=== PATIENT | male | born 1945 | race Caucasian/White ===

== ENCOUNTER 2017-07-10 09:11 | Inpatient (IN) | payer MEDICARE, BC, OTHER ==
[2017-07-10] VITALS (11 sets, daily range): BP systolic 149–197; BP diastolic 88–106; PULSE 78–106; RESP 18–20; TEMP 97.4–98.4; O2SAT 92–97
[~2017-07-10] VITALS: Ht 180.3 cm; Wt 103.5 kg
[~2017-07-10 09:11] MED LIST: ASPI81TA81; BUPR150T5 PO; CO Q100C9; CYAN1TAB24; DOCU50CA5; FISH1000; JANU50TA8 PO; LANTINJ SQ; LUTE6CAP2 PO; RAPA8CAP PO; TELM1TAB2 PO; VERA120T3 PO; VESI10TA PO; VITA200T10; VITA250T3 PO; [UNRECOGNIZED DRUG - CODE]
[2017-07-10] MEDS ORDERED: ceFAZolin 2 GM PREMIX 50 ML IV SCH (10:00)
[2017-07-10] MEDS: SODIUM CHLOR 0.45% 1000 ML IV SCH (10:00)
[2017-07-10] MEDS ORDERED: MORPHINE SULFATE 4 MG/ML INJ IV PRN ×4 (10:15→12:48)
[2017-07-10] MEDS ORDERED: BISACODYL 10 MG SUPP RECTAL PRN (10:15)
[2017-07-10] MEDS ORDERED: ACETAMINOPHEN 650 MG/20.3 ML UDC NG PRN (10:15)
[2017-07-10] MEDS ORDERED: ACETAMINOPHEN/HYDROcodone 325 MG/10 MG TAB PO PRN ×2 (10:15)
[2017-07-10] MEDS ORDERED: PANTOPRAZOLE SODIUM 40 MG VIAL IV PUSH PRN (10:15)
[2017-07-10] MEDS ORDERED: ONDANSETRON HCL 4 MG/2 ML VIAL IV PRN (10:15)
[2017-07-10] MEDS ORDERED: ACETAMINOPHEN 650 MG SUPP RECTAL PRN (10:15)
[2017-07-10] MEDS ORDERED: ACETAMINOPHEN 325 MG TAB PO PRN (10:15)
[2017-07-10] MEDS ORDERED: RESP: ALBUTEROL 2.5 MG/3 ML NEB (PRN) NEB (10:15)
[2017-07-10] MEDS ORDERED: SODIUM CHLORIDE FLUSH PRN IV FLUSH (10:30)
[2017-07-10 10:34] LABS: AUTOMATED NEUTROPHIL # 5.2 TH/MM3 (1.8-7.7); BASOPHIL # 0.1 TH/MM3 (0-0.2); BASOPHIL % 1.2 % (0.0-2.0); EOSINOPHIL # 0.3 TH/MM3 (0-0.4); EOSINOPHIL % 4.3 % (0.0-4.0); HEMATOCRIT 42.6 % (39.0-51.0); HEMO FLAGS DIFF FINAL; LYMPH % 13.9 % (9.0-44.0); MEAN CELL VOLUME 90.5 FL (80.0-100.0); MEAN CORPUSCULAR HEMOGLOBIN 30.4 PG (27.0-34.0); MEAN CORPUSCULAR HGB CONC 33.6 % (32.0-36.0); NEUT % 69.6 % (16.0-70.0); PLATELET COUNT 240 TH/MM3 (150-450); RED BLOOD COUNT 4.71 MIL/MM3 (4.50-5.90); RED CELL DISTRIBUTION WIDTH 17.7 % (11.6-17.2); WHITE BLOOD COUNT 7.5 TH/MM3 (4.0-11.0)
[2017-07-10 10:44] LABS: APTT (PATIENT) 27.8 SEC (24.3-30.1); INTERNATIONAL NORMALIZED RATIO 1.1 RATIO; PROTHROMBIN TIME - PATIENT 11.8 SEC (9.8-11.6)
[2017-07-10 10:49] LABS: BICARBONATE 28.1 MEQ/L (21.0-32.0); POTASSIUM 3.8 MEQ/L (3.5-5.1)
[2017-07-10] MEDS ORDERED: MIDAZOLAM HCL 2 MG/2 ML VIAL ONE (11:01)
[2017-07-10] MEDS ORDERED: DEXTROSE 50% IN WATER 50 ML VIAL(D50) IV PRN ×2 (13:00→14:15)
[2017-07-10] MEDS ORDERED: GLUCAGON 1 MG/ML VIAL OTHER PRN ×2 (13:00→14:15)
--- NOTE | 2017-07-10 13:04 | HHI.HP ---
(Deepika Okeefe) [facility] Service Neurosurgery Primary Care Physician Unknown Chief Complaint: NPH, presents today for lumbar drain placement History of Present Illness Mr. Andrade is a 72 year old male who was previously seen in consultation at the request of Dr. Henri Mosley for neurosurgical evaluation of Normal Pressure Hydrocephalus. Mr. Andrade reports he began to develop progressive gait difficulties since 2009. His who accompanies him today describes his gait as broad based, shuffling, and his feet gets stuck to the floor. He has had recurrent falls. He has now in a motorized scooter for mobility. He underwent Physical Therapy without significant relief. Mr. Andrade also complains of loss of urine control. His reports no difficulties with his memory or thinking. He underwent an MRI of the Brain which showed ventriculomegaly suspicious for communicating hydrocephalus. He presents today for placement of lumbar drain. Dr. Henri Mosley also plans CSF testing for CIDP. (Deepika Okeefe) Review of Systems Constitutional: DENIES: Fever, Chills Eyes: DENIES: Diplopia, Vision loss Ears, nose, mouth, throat: DENIES: Vertigo Respiratory: DENIES: Hemoptysis, Shortness of breath Cardiovascular: DENIES: Chest pain Gastrointestinal: DENIES: Abdominal pain, Nausea, Vomiting Genitourinary: COMPLAINS OF: Urinary incontinence Neurologic: COMPLAINS OF: Abnormal gait, Poor Balance, DENIES: Headache Psychiatric: DENIES: Hallucinations (Deepika Okeefe) Past Family Social History Allergies: Coded Allergies: No Known Allergies (Unverified , 06/18/17) Past Medical History Diabetes mellitus Hx of Chickenpox Peripheral neuropathy Anxiety Depression Past Surgical History 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 Reported Medications Cyanocobalamin (B12)1,000 Mcg Tab3,000 Docusate Sodium (Stool Softener)50 Mg Capsule Coenzyme Q10 (Ubidecarenone) (Co Q 10)100 Mg Cap Ascorbic Acid (Vitamin C)250 Mg [id number] Mg PO Ref [address] (Aspir)81 Mg Tabdr Vitamin E Mixed (Vitamin E)200 Unit Tablet Cholecalciferol (Vitamin D3) (D3-1999)2,000 Unit Capsule [place]-3 Fatty Acids (Fish Oil)1,000 Mg Cap1,200 Lutein 6 Mg Cap6 Mg PO DAILY Ref 0 Bupropion HCl ER 12 HR 150 Mg [id number] Mg PO BID #60 TAB Solifenacin (Vesicare)10 Mg Tab10 Mg PO DAILY #30 TAB Ref 0 Silodosin (Rapaflo)8 Mg Cap8 Mg PO DAILY #30 CAP Ref 0 Sitagliptin-Metformin (Janumet)50-1,000 Mg Tab1 Tab PO BID #60 TAB Ref 0 Insulin Glargine Inj (Lantus Solostar Pen Inj)300 Unit/3 Ml Pen1 Units SQ Ref 0 Telmisartan 80 Mg Tab80 Mg PO DAILY #30 TAB Ref 0 Verapamil 120 Mg [id number] Mg PO DAILY #60 TAB Ref 0 Active Ordered Medications Current Medications Medications (Trade) Dose Ordered Sig/Matias Route PRN Reason Start Time Stop Time Status Last Admin Dose Admin Sodium Chloride 1,000 ml @ 30 mls/hr Q24H IV 07/10/17 10:00 Cefazolin Sodium/ Dextrose 50 ml @ 100 mls/hr SERVICE TECHNICIAN COPIER IV 07/10/17 10:00 07/13/17 09:59 Potassium Chloride/Sodium Chloride 1,000 ml @ 30 mls/hr Q24H IV 07/10/17 11:00 Bisacodyl (Dulcolax Supp) 10 mg DAILY PRN RECTAL CONSTIPATION 07/10/17 10:15 Docusate Sodium (Colace) 100 mg BID PO 07/10/17 21:00 Docusate Sodium (Colace Liq) 100 mg BID NG 07/10/17 21:00 Pantoprazole Sodium (Protonix) 40 mg DAILY PO 07/10/17 11:00 Pantoprazole Sodium (Protonix Inj) 40 mg DAILY PRN IV PUSH SEE LABEL COMMENTS 07/10/17 10:15 Ondansetron HCl (Zofran Inj) 4 mg Q8H PRN IV NAUSEA OR VOMITING 07/10/17 10:15 Acetaminophen/ Hydrocodone Bitart ([place] 10-325 Mg) 1 tab Q4H PRN PO PAIN SCALE 1 TO 5 07/10/17 10:15 Acetaminophen/ Hydrocodone Bitart ([place] 10-325 Mg) 2 tab Q4H PRN PO PAIN SCALE 6 TO 10 07/10/17 10:15 Morphine Sulfate (Morphine Inj) 2 mg Q30M PRN IV PAIN SCALE 1 TO 6 07/10/17 10:15 Morphine Sulfate (Morphine Inj) 4 mg Q1H PRN IV PAIN SCALE 7 TO 10 07/10/17 10:15 Acetaminophen (Tylenol) 650 mg Q4H PRN PO TEMPERATURE > 101.5 F 07/10/17 10:15 Acetaminophen (Tylenol 650 Mg/ 20 ml Liq) 650 mg Q4H PRN NG TEMPERATURE > 101.5 F 07/10/17 10:15 Acetaminophen (Tylenol Supp) 650 mg Q4H PRN RECTAL TEMPERATURE > 101.5 F 07/10/17 10:15 Albuterol Sulfate (Albuterol Neb) 2.5 mg Q4HR NEB PRN NEB WHEEZING 07/10/17 10:15 Sodium Chloride (NS Flush) 2 ml BID IV FLUSH 07/10/17 21:00 Sodium Chloride (NS Flush) 2 ml UNSCH PRN IV FLUSH FLUSH AFTER USING IV ACCESS 07/10/17 10:30 Bupropion HCl (Wellbutrin Sr) 150 mg BID PO 07/10/17 21:00 UNV Verapamil HCl (Isoptin) 240 mg DAILY PO 07/11/17 09:00 UNV Non-Formulary Medication 6 mg DAILY PO 07/11/17 09:00 UNV Non-Formulary Medication 8 mg DAILY PO 07/11/17 09:00 UNV Non-Formulary Medication 1 tab BID PO 07/10/17 21:00 UNV Non-Formulary Medication 10 mg DAILY PO 07/11/17 09:00 UNV Non-Formulary Medication 80 mg DAILY PO 07/11/17 09:00 UNV Dextrose (D50w (Vial) Inj) 50 ml UNSCH PRN IV HYPOGLYCEMIA-SEE COMMENTS 07/10/17 13:00 UNV Glucagon (Glucagon Inj) 1 mg UNSCH PRN OTHER HYPOGLYCEMIA-SEE COMMENTS 07/10/17 13:00 UNV Insulin Aspart (NovoLOG SUPPLEMENTAL SCALE) 1 ACHS SLIDING SCALE SQ 07/10/17 16:00 UNV Family History Reports of dementia and heart disease in family Social History Alcohol Intake: None Substance Use: Denies used Tobacco Use: never smoker (Deepika Okeefe) Physical Exam Vital Signs Vital Signs Date Time Temp Pulse Resp B/P (MAP) Pulse Ox O2 Delivery O2 Flow Rate FiO2 07/10/17 12:15 97.9 83 20 162/92 (115) 93 07/10/17 09:52 Room Air 07/10/17 09:34 97.9 98 18 190/106 (134) 95 Physical Exam Mr. Andrade is alert, awake and oriented to time, place and person. Speech is fluent. Follows commands without apraxia. Memory: Immediate recall 3/3. 1/3 after 5 minutes. Cranial nerve: pupils equal, round, and reactive to light. EOMs are intact. Facial motor and sensory function are normal and symmetrical. The uvula is midline and elevates symmetrically with the soft palate. Sternocleidomastoid and trapezius muscles have normal and symmetrical strength. Other cranial nerves are intact. Neck is soft and supple. Muscle strength is 5/5 in all muscle groups of both upper extremities including deltoid, biceps, triceps and experimental technician. In the lower extremities, strength is 4/5 right iliopsoas, 5/5 left iliopsoas, bilateral quadriceps, hamstrings, plantar flexion, dorsiflexion. Sensory examination is intact to light touch in both the upper and lower extremities, symmetrically. Deep tendon reflexes are 2+ and symmetrical in the biceps, triceps, and brachioradialis, bilaterally, in the upper extremities. In the lower extremities , the patellar and Achilles are 2+, bilaterally. There is a bilateral plantar flexion response. Zeferino's sign is negative. There is no clonus or other abnormal reflexes noted. Cerebellar examination is intact to [id number] test Gait examination in office: patient presented in a scooter chair. Attempted to ambulate patient with two man maximum assist, patient was unable to stand up off the chair. Per , patient walking appears broad based, shuffling, and feet gets stuck to floor. CARDIOVASCULAR: Regular rate and rhythm without murmurs, gallops, or rubs. RESPIRATORY: Clear to auscultation. Breath sounds equal bilaterally. No wheezes , rales, or rhonchi. GASTROINTESTINAL: Abdomen soft, non-tender, nondistended. MUSCULOSKELETAL: Extremities without clubbing, cyanosis, or edema. No calf tenderness. Negative Homans sign Laboratory Laboratory Tests Test 07/10/17 08:30 White Blood Count 7.5 Red Blood Count 4.71 Hemoglobin 14.3 Hematocrit 42.6 Mean Corpuscular Volume 90.5 Mean Corpuscular Hemoglobin 30.4 Mean Corpuscular Hemoglobin Concent 33.6 Red Cell Distribution Width 17.7 Platelet Count 240 Mean Platelet Volume 8.2 Neutrophils (%) (Auto) 69.6 Lymphocytes (%) (Auto) 13.9 Monocytes (%) (Auto) 11.0 Eosinophils (%) (Auto) 4.3 Basophils (%) (Auto) 1.2 Neutrophils # (Auto) 5.2 Lymphocytes # (Auto) 1.0 Monocytes # (Auto) 0.8 Eosinophils # (Auto) 0.3 Basophils # (Auto) 0.1 CBC Comment DIFF FINAL Differential Comment Prothrombin Time 11.8 Prothromb Time International Ratio 1.1 Activated Partial Thromboplast Time 27.8 Blood Urea Nitrogen 15 Creatinine 0.92 Random Glucose 106 Calcium Level 8.6 Sodium Level 143 Potassium Level 3.8 Chloride Level 108 Carbon Dioxide Level 28.1 Anion Gap 7 Estimat Glomerular Filtration Rate 80 (Deepika Okeefe) Physical Exam Mr. Andrade is alert, awake and oriented to time, place and person. Speech is fluent. Follows commands without apraxia. Memory: Immediate recall 3/3. 1/3 after 5 minutes. Cranial nerve: pupils equal, round, and reactive to light. EOMs are intact. Facial motor and sensory function are normal and symmetrical. The uvula is midline and elevates symmetrically with the soft palate. Sternocleidomastoid and trapezius muscles have normal and symmetrical strength. Other cranial nerves are intact. Neck is soft and supple. Muscle strength is 5/5 in all muscle groups of both upper extremities including deltoid, biceps, triceps and experimental technician. In the lower extremities, strength is 4/5 right iliopsoas, 5/5 left iliopsoas, bilateral quadriceps, hamstrings, plantar flexion, dorsiflexion. Sensory examination is intact to light touch in both the upper and lower extremities, symmetrically. Deep tendon reflexes are 2+ and symmetrical in the biceps, triceps, and brachioradialis, bilaterally, in the upper extremities. In the lower extremities , the patellar and Achilles are 2+, bilaterally. There is a bilateral plantar flexion response. Zeferino's sign is negative. There is no clonus or other abnormal reflexes noted. Cerebellar examination is intact to [id number] test (Edgar Urbina MD) Result Diagram: 07/10/17 0830 07/10/17 0830 Imaging MRI brain 05/31/17 [facility] Dilation of the ventricles. 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 Mild cortical involution and microvascular gliosis. (Deepika Okeefe) Caprini VTE Risk Assessment Caprini VTE Risk Assessment: Mod/High Risk (score >= 2) VTE Pharm Contraindication: Epidural catheter Caprini Risk Assessment Model Point Value = 1 Point Value = 2 Point Value = 3 Point Value = 5 Age 41-60 Minor surgery BMI > 25 kg/m2 Swollen legs Varicose veins or History of unexplained or recurrent spontaneous Oral contraceptives or hormone replacement Sepsis (< 1 month) Serious lung disease, including pneumonia (< 1 month) Abnormal pulmonary function Acute myocardial infarction Congestive heart failure (< 1 month) History of inflammatory bowel disease Medical patient at bed rest Age 61-74 Arthroscopic surgery Major open surgery (> 45 min) Laparoscopic surgery (> 45 min) Malignancy Confined to bed (> 72 hours) Immobilizing plaster cast Central venous access Age >= 75 History of VTE Family history of VTE Factor V Leiden Prothrombin [id number] Lupus anticoagulant Anticardiolipin antibodies Elevated serum homocysteine Heparin-induced thrombocytopenia Other congenital or acquired thrombophilia Stroke (< 1 month) Elective arthroplasty Hip, pelvis, or leg fracture Acute spinal cord injury (< 1 month) Prophylaxis Regimen Total Risk Factor Score Risk Level Prophylaxis Regimen 0-1 Low Early ambulation 2 Moderate Order ONE of the following: *Sequential Compression Device (SCD) *Heparin 5000 units SQ BID 3-4 Higher Order ONE of the following medications: *Heparin 5000 units SQ TID *Enoxaparin/Lovenox 40 mg SQ daily (WT < 150 kg, CrCl > 30 mL/min) *Enoxaparin/Lovenox 30 mg SQ daily (WT < 150 kg, CrCl > 10-29 mL/min) *Enoxaparin/Lovenox 30 mg SQ BID (WT < 150 kg, CrCl > 30 mL/min) AND/OR *Sequential Compression Device (SCD) 5 or more Highest Order ONE of the following medications: *Heparin 5000 units SQ TID (Preferred with Epidurals) *Enoxaparin/Lovenox 40 mg SQ daily (WT < 150 kg, CrCl > 30 mL/min) *Enoxaparin/Lovenox 30 mg SQ daily (WT < 150 kg, CrCl > 10-29 mL/min) *Enoxaparin/Lovenox 30 mg SQ BID (WT < 150 kg, CrCl > 30 mL/min) AND *Sequential Compression Device (SCD) (Deepika Okeefe) Assessment and Plan Assessment and Plan Mr. Andrade with suspected Normal Pressure Hydrocephalus. He underwent placement of lumbar drain for CSF drainage per protocol. Physical Therapy evaluation pre and post lumbar drain placement. If the patients gait improves after CSF drainage, he may be a candidate for placement of a permanent ventriculoperitoneal shunt. Consultation to Dr. Henri Mosley, Neurologist, as patient known to him for work up for possible CIDP. Consultation to hospitalist in assistance with medical management SCDs and TEDs for DVT prophylaxis. Chemical prophylaxis contraindicated due to lumbar drain. Protonix for stress ulcer prophylaxis. Diabetes: glucose monitoring with insulin SS, defer further management per medicine Diet: regular oral diet (Deepika Okeefe) Assessment and Plan Gait examination in office: patient presented in a scooter chair. Attempted to ambulate patient with two man maximum assist, patient was unable to stand up off the chair. Per , patient walking appears broad based, shuffling, and feet gets stuck to floor. CARDIOVASCULAR: Regular rate and rhythm without murmurs, gallops, or rubs. RESPIRATORY: Clear to auscultation. Breath sounds equal bilaterally. No wheezes , rales, or rhonchi. GASTROINTESTINAL: Abdomen soft, non-tender, nondistended. MUSCULOSKELETAL: Extremities without clubbing, cyanosis, or edema. No calf tenderness. Negative Homans sign Laboratory Laboratory Tests Test 07/10/17 08:30 White Blood Count 7.5 Red Blood Count 4.71 Hemoglobin 14.3 Hematocrit 42.6 Mean Corpuscular Volume 90.5 Mean Corpuscular Hemoglobin 30.4 Mean Corpuscular Hemoglobin Concent 33.6 Red Cell Distribution Width 17.7 Platelet Count 240 Mean Platelet Volume 8.2 Neutrophils (%) (Auto) 69.6 Lymphocytes (%) (Auto) 13.9 Monocytes (%) (Auto) 11.0 Eosinophils (%) (Auto) 4.3 Basophils (%) (Auto) 1.2 Neutrophils # (Auto) 5.2 Lymphocytes # (Auto) 1.0 Monocytes # (Auto) 0.8 Eosinophils # (Auto) 0.3 Basophils # (Auto) 0.1 CBC Comment DIFF FINAL Differential Comment Prothrombin Time 11.8 Prothromb Time International Ratio 1.1 Activated Partial Thromboplast Time 27.8 Blood Urea Nitrogen 15 Creatinine 0.92 Random Glucose 106 Calcium Level 8.6 Sodium Level 143 Potassium Level 3.8 Chloride Level 108 Carbon Dioxide Level 28.1 Anion Gap 7 Estimat Glomerular Filtration Rate 80 (Deepika Okeefe) Result Diagram: 07/10/17 0830 07/10/17 0830 Imaging MRI brain 05/31/17 [facility] Dilation of the ventricles. 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 Mild cortical involution and microvascular gliosis. (Deepika Okeefe) Caprini VTE Risk Assessment Caprini VTE Risk Assessment: Mod/High Risk (score >= 2) VTE Pharm Contraindication: Epidural catheter Caprini Risk Assessment Model Point Value = 1 Point Value = 2 Point Value = 3 Point Value = 5 Age 41-60 Minor surgery BMI > 25 kg/m2 Swollen legs Varicose veins or History of unexplained or recurrent spontaneous Oral contraceptives or hormone replacement Sepsis (< 1 month) Serious lung disease, including pneumonia (< 1 month) Abnormal pulmonary function Acute myocardial infarction Congestive heart failure (< 1 month) History of inflammatory bowel disease Medical patient at bed rest Age 61-74 Arthroscopic surgery Major open surgery (> 45 min) Laparoscopic surgery (> 45 min) Malignancy Confined to bed (> 72 hours) Immobilizing plaster cast Central venous access Age >= 75 History of VTE Family history of VTE Factor V Leiden Prothrombin [id number] Lupus anticoagulant Anticardiolipin antibodies Elevated serum homocysteine Heparin-induced thrombocytopenia Other congenital or acquired thrombophilia Stroke (< 1 month) Elective arthroplasty Hip, pelvis, or leg fracture Acute spinal cord injury (< 1 month) Prophylaxis Regimen Total Risk Factor Score Risk Level Prophylaxis Regimen 0-1 Low Early ambulation 2 Moderate Order ONE of the following: *Sequential Compression Device (SCD) *Heparin 5000 units SQ BID 3-4 Higher Order ONE of the following medications: *Heparin 5000 units SQ TID *Enoxaparin/Lovenox 40 mg SQ daily (WT < 150 kg, CrCl > 30 mL/min) *Enoxaparin/Lovenox 30 mg SQ daily (WT < 150 kg, CrCl > 10-29 mL/min) *Enoxaparin/Lovenox 30 mg SQ BID (WT < 150 kg, CrCl > 30 mL/min) AND/OR *Sequential Compression Device (SCD) 5 or more Highest Order ONE of the following medications: *Heparin 5000 units SQ TID (Preferred with Epidurals) *Enoxaparin/Lovenox 40 mg SQ daily (WT < 150 kg, CrCl > 30 mL/min) *Enoxaparin/Lovenox 30 mg SQ daily (WT < 150 kg, CrCl > 10-29 mL/min) *Enoxaparin/Lovenox 30 mg SQ BID (WT < 150 kg, CrCl > 30 mL/min) AND *Sequential Compression Device (SCD) (Deepika Okeefe) Suspected Normal Pressure Hydrocephalus. He underwent placement of lumbar drain for CSF drainage per protocol. Physical Therapy evaluation pre and post lumbar drain placement. If the patients gait improves after CSF drainage, he may be a candidate for placement of a permanent ventriculoperitoneal shunt. Consultation to Dr. Henri Mosley, for work up for possible CIDP. Pulmonary.. Continue aggressive pulmonary toilette, nasotracheal suction, and breathing treatments with nebulizers. Nutrition. NPO Renal. monitor closely urine output, BUN and creatinine Endocrine. Monitor serial Acu checks and SSI as needed in detail ID monitor for signs of infection Protonix for stress ulcer prophylaxis Cristóbal hose and SCD's for DVT prophylaxis (Edgar Urbina MD) Attending Statement The exam, history, and the medical decision-making described in the above note were completed with the assistance of the mid-level provider. I reviewed and agree with the findings presented. I attest that I had a [id number] encounter with the patient on the same day, and personally performed and documented my assessment and findings in the medical record. (Edgar Urbina MD) Deepika Okeefe Jul 10, 2017 13:03 Edgar Urbina MD Jul 22, 2017 21:59
--- NOTE | 2017-07-10 14:31 | PD.CONS ---
[facility] Request[facility] By DR DESIREE TINSLEY Reason for Consult MEDICAL MANAGEMENT Primary Care Physician MURRAY POMPA Diagnoses: (1) Gait instability (2) Diabetes (3) Hypertension (4) Depression (5) Anxiety History of Present Illness Mr. Andrade is a 72 year old male who was previously seen in consultation BY DR TINSLEY at the request of Dr. Henri Mosley for neurosurgical evaluation of Normal Pressure Hydrocephalus. Mr. Andrade reports he began to develop progressive gait difficulties since 2009. His who accompanies him today describes his gait as broad based, shuffling, and his feet gets stuck to the floor. He has had recurrent falls. He NOW USES a motorized scooter for mobility. He underwent Physical Therapy without significant relief. Mr. Andrade also complains of loss of urine control. His reports no difficulties with his memory or thinking. He underwent an MRI of the Brain which showed ventriculomegaly suspicious for communicating hydrocephalus. He presents today for placement of lumbar drain. Dr. Henri Mosley also plans CSF testing for CIDP. WE HAVE BEEN ASKED TO SEE REGARDING MEDICAL MANAGEMENT. Review of Systems Constitutional: COMPLAINS OF: Fatigue, Dizziness, DENIES: Diaphoretic episodes , Fever, Weight gain, Weight loss, Chills, Change in appetite, Night Sweats Endocrine: DENIES: Heat/cold intolerance, Polydipsia, Polyuria, Polyphagia Eyes: DENIES: Blurred vision, Diplopia, Eye inflammation, Eye pain, Vision loss , Photosensitivity Ears, nose, mouth, throat: DENIES: Tinnitus, Hearing loss, Vertigo, Nasal discharge, Oral lesions, Throat pain, Hoarseness Respiratory: DENIES: Apneas, Cough, Snoring, Wheezing, Hemoptysis, Sputum production Cardiovascular: DENIES: Chest pain, Palpitations, Syncope, Dyspnea on Exertion , PND, Lower Extremity Edema Gastrointestinal: DENIES: Abdominal pain, Black stools, Bloody stools, Constipation, Diarrhea Genitourinary: DENIES: Sexual dysfunction, Urinary frequency, Urinary incontinence Musculoskeletal: DENIES: Joint pain, Muscle aches, Stiffness Integumentary: DENIES: Abnormal pigmentation, Nail changes Hematologic/lymphatic: DENIES: Bruising, Lymphadenopathy Immunologic/allergic: DENIES: Eczema, Urticaria Neurologic: COMPLAINS OF: Abnormal gait, Localized weakness, Poor Balance, DENIES: Headache, Paresthesias, Seizures, Speech Problems, Tremor Psychiatric: COMPLAINS OF: Anxiety, Depression, DENIES: Confusion, Mood changes , Hallucinations, Agitation, Suicidal Ideation, Homicidal Ideation Past Family Social History Allergies: Coded Allergies: No Known Allergies (Unverified , 06/18/17) Past Medical History HYPERTENSION DIABETES ANXIETY DEPRESSION GAIT INSTABILITY HX OF FALLS PERIPHERAL NEUROPATHY Past Surgical History 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 Reported Medications Reported Meds & Active Scripts Active Reported B12 (Cyanocobalamin) 1,000 Mcg Tab 3,000 Stool Softener (Docusate Sodium) 50 Mg Capsule Co Q 10 (Coenzyme Q10 (Ubidecarenone)) 100 Mg Cap Vitamin C (Ascorbic Acid) 250 Mg Tab 500 Mg PO Aspir-81 (Aspirin) 81 Mg Tabdr Vitamin E (Vitamin E Mixed) 200 Unit Tablet D3-2000 (Cholecalciferol (Vitamin D3)) 2,000 Unit Capsule Fish Oil (Ravena-3 Fatty Acids) 1,000 Mg Cap 1,200 Lutein 6 Mg Cap 6 Mg PO DAILY Bupropion HCl ER 12 HR (Bupropion HCl) 150 Mg Tab 150 Mg PO BID Vesicare (Solifenacin) 10 Mg Tab 10 Mg PO DAILY Rapaflo (Silodosin) 8 Mg Cap 8 Mg PO DAILY Janumet (Sitagliptin-Metformin) 50-1,000 Mg Tab 1 Tab PO BID Lantus Solostar Pen Inj (Insulin Glargine) 300 Unit/3 Ml Pen 1 Units SQ Telmisartan 80 Mg Tab 80 Mg PO DAILY Verapamil (Verapamil HCl) 120 Mg Tab 240 Mg PO DAILY Active Ordered Medications Current Medications Sodium Chloride 1,000 ml @ 30 mls/hr Q24H IV ; Start 07/10/17 at 10:00 Cefazolin Sodium/ Dextrose 50 ml @ 100 mls/hr CORPORATE ADMINISTRATIVE ASSISTANT IV ; Start 07/10/17 at 10 :00; Stop 07/13/17 at 09:59 Potassium Chloride/Sodium Chloride 1,000 ml @ 30 mls/hr Q24H IV ; Start at 11:00 Bisacodyl (Dulcolax Supp) 10 mg DAILY PRN RECTAL CONSTIPATION; Start 07/10/17 at 10:15 Docusate Sodium (Colace) 100 mg BID PO ; Start 07/10/17 at 21:00 Docusate Sodium (Colace Liq) 100 mg BID NG ; Start 07/10/17 at 21:00 Pantoprazole Sodium (Protonix) 40 mg DAILY PO ; Start 07/10/17 at 11:00 Pantoprazole Sodium (Protonix Inj) 40 mg DAILY PRN IV PUSH SEE LABEL COMMENTS; Start 07/10/17 at 10:15 Ondansetron HCl (Zofran Inj) 4 mg Q8H PRN IV NAUSEA OR VOMITING; Start 07/10/17 at 10:15 Acetaminophen/ Hydrocodone Bitart ([place]ison 10-325 Mg) 1 tab Q4H PRN PO PAIN SCALE 1 TO 5; Start 07/10/17 at 10:15 Acetaminophen/ Hydrocodone Bitart (Burlison 10-325 Mg) 2 tab Q4H PRN PO PAIN SCALE 6 TO 10; Start 07/10/17 at 10:15 Morphine Sulfate (Morphine Inj) 2 mg Q30M PRN IV PAIN SCALE 1 TO 6; Start at 10:15; Stop 07/10/17 at 12:52; Status DC Morphine Sulfate (Morphine Inj) 4 mg Q1H PRN IV PAIN SCALE 7 TO 10; Start at 10:15; Stop 07/10/17 at 12:52; Status DC Acetaminophen (Tylenol) 650 mg Q4H PRN PO TEMPERATURE > 101.5 F; Start 07/10/17 at 10:15 Acetaminophen (Tylenol 650 Mg/ 20 ml Liq) 650 mg Q4H PRN NG TEMPERATURE > 101.5 F; Start 07/10/17 at 10:15 Acetaminophen (Tylenol Supp) 650 mg Q4H PRN RECTAL TEMPERATURE > 101.5 F; Start 07/10/17 at 10:15 Albuterol Sulfate (Albuterol Neb) 2.5 mg Q4HR NEB PRN NEB WHEEZING; Start at 10:15 Sodium Chloride (NS Flush) 2 ml BID IV FLUSH ; Start 07/10/17 at 21:00 Sodium Chloride (NS Flush) 2 ml UNSCH PRN IV FLUSH FLUSH AFTER USING IV ACCESS ; Start 07/10/17 at 10:30 Fentanyl Citrate (fentaNYL INJ) 100 mcg STK-MED ONCE .ROUTE Last administered on 07/10/17t 11:01; Start 07/10/17 at 11:01; Stop 07/10/17 at 11:02; Status DC Midazolam HCl (Versed Inj) 2 mg STK-MED ONCE .ROUTE Last administered on t 11:01; Start 07/10/17 at 11:01; Stop 07/10/17 at 11:02; Status DC Bupropion HCl (Wellbutrin Sr) 150 mg BID PO ; Start 07/10/17 at 21:00; Status UNV Verapamil HCl (Isoptin) 240 mg DAILY PO ; Start 07/11/17 at 09:00; Status UNV Non-Formulary Medication 6 mg DAILY PO ; Start 07/11/17 at 09:00; Status UNV Non-Formulary Medication 8 mg DAILY PO ; Start 07/11/17 at 09:00; Status UNV Non-Formulary Medication 1 tab BID PO ; Start 07/10/17 at 21:00; Status UNV Non-Formulary Medication 10 mg DAILY PO ; Start 07/11/17 at 09:00; Status UNV Non-Formulary Medication 80 mg DAILY PO ; Start 07/11/17 at 09:00; Status UNV Dextrose (D50w (Vial) Inj) 50 ml UNSCH PRN IV HYPOGLYCEMIA-SEE COMMENTS; Start 07/10/17 at 13:00; Status UNV Glucagon (Glucagon Inj) 1 mg UNSCH PRN OTHER HYPOGLYCEMIA-SEE COMMENTS; Start 07/10/17 at 13:00; Status UNV Insulin Aspart (NovoLOG SUPPLEMENTAL SCALE) 1 ACHS SLIDING SCALE SQ ; Start 07/10/17 at 16:00; Status UNV Morphine Sulfate (Morphine Inj) 2 mg Q2HR PRN IV PAIN SCALE 1 TO 6; Start at 12:48; Status UNV Morphine Sulfate (Morphine Inj) 4 mg Q2HR PRN IV PAIN SCALE 7 TO 10; Start 07/10 at 12:48; Stop 07/15/17 at 12:47; Status UNV Dextrose (D50w (Vial) Inj) 50 ml UNSCH PRN IV HYPOGLYCEMIA-SEE COMMENTS; Start 07/10/17 at 14:15; Status UNV Glucagon (Glucagon Inj) 1 mg UNSCH PRN OTHER HYPOGLYCEMIA-SEE COMMENTS; Start 07/10/17 at 14:15; Status UNV Insulin Aspart (NovoLOG SUPPLEMENTAL SCALE) 1 ACHS SLIDING SCALE SQ ; Start 07/10/17 at 16:00; Status UNV Family History HEART DISEASE DEMENTIA Social History NO ALCOHOL, NO TOBACCO, NO ILLICIT DRUGS LIVES WITH USES SCOOTER FOR AMBULATION Physical Exam Vital Signs Vital Signs Date Time Temp Pulse Resp B/P (MAP) Pulse Ox O2 Delivery O2 Flow Rate FiO2 07/10/17 13:45 78 18 158/99 (118) 92 07/10/17 13:15 85 18 149/88 (108) 93 07/10/17 12:45 78 20 158/89 (112) 95 07/10/17 12:30 82 20 158/91 (113) 94 07/10/17 12:15 97.9 83 20 162/92 (115) 93 07/10/17 09:52 Room Air 07/10/17 09:34 97.9 98 18 190/106 (134) 95 Physical Exam GENERAL: This is a well-nourished, well-developed patient, in no apparent distress. SKIN: No rashes, ecchymoses or lesions. Cool and dry. HEAD: Atraumatic. Normocephalic. No temporal or scalp tenderness. EYES: Pupils equal round and reactive. Extraocular motions intact. No scleral icterus. No injection or drainage. ENT: Nose without bleeding, purulent drainage or septal hematoma. Throat without erythema, tonsillar hypertrophy or exudate. Uvula midline. Airway patent. NECK: Trachea midline. No JVD or lymphadenopathy. Supple, nontender, no meningeal signs. CARDIOVASCULAR: Regular rate and rhythm without murmurs, gallops, or rubs. S1, S2 NO S3 OR S4 NO HEAVE OR THRILL RESPIRATORY: Clear to auscultation. Breath sounds equal bilaterally. No wheezes , rales, or rhonchi. GASTROINTESTINAL: Abdomen soft, non-tender, nondistended. No hepato-splenomegaly , or palpable masses. No guarding. MUSCULOSKELETAL: Extremities without clubbing, cyanosis, or edema. No joint tenderness, effusion, or edema noted. No calf tenderness. Negative Homans sign bilaterally. NEUROLOGICAL: Awake and alert. Cranial nerves II through XII intact. Motor and sensory grossly within normal limits. 4 out of 5 muscle strength in all muscle groups. Normal speech. INSIGHT AND JUDGEMENT ARE GOOD MOOD AND BEHAVIOR ARE APPROPRIATE Laboratory Laboratory Tests Test 07/10/17 08:30 White Blood Count 7.5 Red Blood Count 4.71 Hemoglobin 14.3 Hematocrit 42.6 Mean Corpuscular Volume 90.5 Mean Corpuscular Hemoglobin 30.4 Mean Corpuscular Hemoglobin Concent 33.6 Red Cell Distribution Width 17.7 Platelet Count 240 Mean Platelet Volume 8.2 Neutrophils (%) (Auto) 69.6 Lymphocytes (%) (Auto) 13.9 Monocytes (%) (Auto) 11.0 Eosinophils (%) (Auto) 4.3 Basophils (%) (Auto) 1.2 Neutrophils # (Auto) 5.2 Lymphocytes # (Auto) 1.0 Monocytes # (Auto) 0.8 Eosinophils # (Auto) 0.3 Basophils # (Auto) 0.1 CBC Comment DIFF FINAL Differential Comment Prothrombin Time 11.8 Prothromb Time International Ratio 1.1 Activated Partial Thromboplast Time 27.8 Blood Urea Nitrogen 15 Creatinine 0.92 Random Glucose 106 Calcium Level 8.6 Sodium Level 143 Potassium Level 3.8 Chloride Level 108 Carbon Dioxide Level 28.1 Anion Gap 7 Estimat Glomerular Filtration Rate 80 Result Diagram: 07/10/1730 07/10/17 0830 Assessment and Plan Problem List: (1) Depression ICD Code: F32.9 - Major depressive disorder, single episode, unspecified (2) Anxiety ICD Code: F41.9 - Anxiety disorder, unspecified (3) Gait instability ICD Code: R26.81 - Unsteadiness on feet (4) Hypertension ICD Code: I10 - Essential (primary) hypertension (5) Diabetes ICD Code: E11.9 - Type 2 diabetes mellitus without complications Assessment and Plan Gait Instability is being worked up for normal pressure hydrocephalus by Dr. TINSLEY as well as Dr. Mosley Had lumbar drain placed to determine if this helps Has gait instability and frequent falls mainly uses a scooter now Hypertension resume home medications Diabetes continue on insulin sliding scale coverage and Accu-Cheks before meals and at bedtime Depression and anxiety continue on home medications Incontinence monitors see if this is an aspect of normal pressure hydrocephalus Does not appear demented or to have memory loss at this time Continue physical therapy and occupational therapy. Will monitor for any other issues that arise will get a.m. labs and follow him throughout the admission for any information please see chart Code Status FULL CODE Discussed Condition With PATIENT, AND RN Palmer Abad DO Jul 10, 2017 14:31
--- NOTE | 2017-07-10 15:45 | PD.RAD ---
Post Procedure Progress Note Pre Procedure Diagnosis: (1) Incontinence (2) Gait instability Post Procedure Diagnosis: (1) Gait instability (2) Incontinence Procedure Date: Jul 10, 2017 Supervising Radiologist: Dimitri Mcdermott Proceduralist/Assist: Jesus Strong, RT(R), Joseline Ramos RT(R)() Anesthesia: Local, Analgesia, Conscious Sedation Plan of Activity Patient to Unit: ROPU Patient Condition: Good See PACS Report for procedural detail/treatment Spinal Procedure Lumbar Drain L3 Fluid Description: Clear Puncture Time: 11:52 Findings: Tip at T8-9 Dimitri Mcdermott MD Jul 10, 2017 15:45
[2017-07-10] MEDS: INSULIN ASPART SUPPLEMENTAL SCALE SQ SCH ×2 (16:00→20:41)
[2017-07-10] MEDS ORDERED: INSULIN ASPART SUPPLEMENTAL SCALE SQ SCH (16:00)
[2017-07-10 16:07] LABS: CSF LYMPHOCYTES 53 %; CSF MONOCYTES 33 %; GROSS BLOOD TUBE #1 0 (0); GROSS BLOOD TUBE #2 0 (0); GROSS BLOOD TUBE #3 0 (0); SUPERNATE COLOR TUBE #1 CLEAR (CLEAR); SUPERNATE COLOR TUBE #2 CLEAR (CLEAR); SUPERNATE COLOR TUBE #3 CLEAR (CLEAR)
[2017-07-10 16:08] LABS: CSF NEUTROPHILS 0 %; GROSS BLOOD TUBE #4 0 (0); SUPERNATE COLOR TUBE #4 CLEAR (CLEAR); WBC TUBE #4 7 /MM3 (0-10)
[2017-07-10] MEDS: PANTOPRAZOLE SOD 40 MG DELAYED RELEASE TAB PO SCH (17:09)
[2017-07-10] MEDS: NS + KCL 20 MEQ INJ 1,000 ML IV SCH (17:10)
[2017-07-10] MEDS: TAMSULOSIN HCL 0.4 MG CAP PO SCH (17:42)
--- NOTE | 2017-07-10 18:11 | RADRPT ---
EXAM DATE/TIME: 07/10/2017 11:21 [facility] COMPARISON: No previous studies available for comparison. INDICATIONS : Patient is in need of lumbar drain placement due to normal pressure hydrocephalus. MEDICAL HISTORY : History of DM, peripheral neuropathy, HTN. SURGIAL HISTORY : Left hand digit amputation. ENCOUNTER: Initial ACUITY: >1 year PAIN SCORE: 0/10 LUMBAR PUNCTURE TIME: 1152 hours FLUORO TIME: 1.5 minutes IMAGE SERIES: 2 SEDATION TIME: 30 minutes LEVEL: Tip of lumbar drain was placed at T8 MEDICATION(S): 1.) 2 mg midazolam (Versed) IV 2.) 100 mcg fentanyl (Sublimaze) IV DEVICE(S): 1.) 5 [place] lumbar drain catheter PROCEDURE : 1. Fluoroscopically guided lumbar drain placement. 2. Conscious sedation with continuous EKG and oximetry monitoring. The risks, benefits and alternatives to the procedure were explained and verbal and written consent w as obtained. The site was prepped in sterile fashion. Full sterile technique was used, including ca p, mask, sterile gloves and gown and a large sterile sheet. Hand hygiene and 2% chlorhexidine and/or betadine/alcohol prep was utilized per protocol for cutaneous antisepsis. The skin and subcutaneous tissues were infiltrated with local anesthetic solution. With fluoroscopic guidance the lumbar thecal sac was punctured with a 14 gauge Touhy needle and a lum bar drain was placed with its tip at the level as described above and the catheter was sutured in wu ce. CSF was identified returning from the catheter at the termination of the procedure. Conscious sedation was performed with the prescribed dosages and duration as above in the presence of an independent trained radiology nurse to assist in the monitoring of the patient. EKG and oximetry remained stable throughout the procedure. The patient tolerated the procedure well and there were n o complications. The patient was sent to post anesthesia recovery in stable condition. CONCLUSION: Uncomplicated lumbar drain placement as above. Dimitri Mcdermott MD on July 10, 2017 at 18:09 Board Certified Radiologist. This report was verified electronically.
[2017-07-10] MEDS ORDERED: NON-FORMULARY DRUG (Sitagliptin-Metformin (Janumet) 1 TAB) PO SCH (21:00)
[2017-07-10] MEDS: buPROPion HCL 150 MG SUSTAINED RELEASE TAB PO SCH (21:37)
[2017-07-10] MEDS: DOCUSATE SODIUM 100 MG CAP PO SCH (21:37)
[2017-07-10] MEDS: DOCUSATE SODIUM 100 MG/10 ML UDC NG SCH (21:37)
[2017-07-10] MEDS: SODIUM CHLORIDE FLUSH BID IV FLUSH SCH (21:38)
[2017-07-10] MEDS: metFORMIN HCL 500 MG TAB PO SCH (21:38)
[2017-07-10] MEDS ORDERED: LOSARTAN 50 MG TAB PO ONE (23:30)
[2017-07-11] VITALS (7 sets, daily range): BP systolic 134–197; BP diastolic 67–93; PULSE 72–95; RESP 18–20; TEMP 97–98.2; O2SAT 94–96
[2017-07-11] MEDS ORDERED: cloNIDine HCL 0.1 MG TAB PO ONE (02:15)
[2017-07-11] MEDS: INSULIN ASPART SUPPLEMENTAL SCALE SQ SCH ×4 (06:39→21:11)
[2017-07-11] MEDS: SODIUM CHLORIDE FLUSH BID IV FLUSH SCH ×2 (08:35→21:15)
[2017-07-11] MEDS: DOCUSATE SODIUM 100 MG/10 ML UDC NG SCH ×2 (08:36→21:15)
[2017-07-11] MEDS: VERAPAMIL HCL 240 MG SUSTAINED RELEASE TAB PO SCH (08:39)
[2017-07-11] MEDS: metFORMIN HCL 500 MG TAB PO SCH ×2 (08:39→21:09)
[2017-07-11] MEDS: buPROPion HCL 150 MG SUSTAINED RELEASE TAB PO SCH ×2 (08:40→21:08)
[2017-07-11] MEDS: PANTOPRAZOLE SOD 40 MG DELAYED RELEASE TAB PO SCH (08:40)
[2017-07-11] MEDS: TOLTERODINE TARTRATE 4 MG CAP LA PO SCH (08:41)
[2017-07-11] MEDS: DOCUSATE SODIUM 100 MG CAP PO SCH ×2 (08:41→21:08)
[2017-07-11] MEDS: LOSARTAN 50 MG TAB PO SCH (08:41)
[2017-07-11] MEDS: TAMSULOSIN HCL 0.4 MG CAP PO SCH (08:41)
[2017-07-11] MEDS: SODIUM CHLOR 0.45% 1000 ML IV SCH (08:42)
[2017-07-11] MEDS ORDERED: VERAPAMIL HCL 120 MG TAB PO SCH (09:00)
[2017-07-11] MEDS ORDERED: TELMISARTAN 80 MG PO SCH (09:00)
[2017-07-11] MEDS ORDERED: NON-FORMULARY DRUG (Lutein 6 MG) PO SCH (09:00)
[2017-07-11] MEDS ORDERED: NON-FORMULARY DRUG (Solifenacin (Vesicare) 10 MG) PO SCH (09:00)
[2017-07-11 10:10] LABS: AUTOMATED NEUTROPHIL # 6.8 TH/MM3 (1.8-7.7); BASOPHIL # 0.1 TH/MM3 (0-0.2); BASOPHIL % 0.6 % (0.0-2.0); EOSINOPHIL # 0.3 TH/MM3 (0-0.4); EOSINOPHIL % 3.3 % (0.0-4.0); HEMATOCRIT 40.8 % (39.0-51.0); HEMO FLAGS DIFF FINAL; LYMPH % 14.4 % (9.0-44.0); LYMPHOCYTE # 1.4 TH/MM3 (1.0-4.8); MEAN CELL VOLUME 90.2 FL (80.0-100.0); MEAN CORPUSCULAR HEMOGLOBIN 30.7 PG (27.0-34.0); MONO % 10.4 % (0.0-8.0); NEUT % 71.3 % (16.0-70.0); PLATELET COUNT 240 TH/MM3 (150-450); RED BLOOD COUNT 4.52 MIL/MM3 (4.50-5.90); RED CELL DISTRIBUTION WIDTH 17.2 % (11.6-17.2); WHITE BLOOD COUNT 9.6 TH/MM3 (4.0-11.0)
[2017-07-11 10:35] LABS: ALT (GPT) 11 U/L (12-78); ANION GAP 8 MEQ/L (5-15); AST (GOT) 3 U/L (15-37); BICARBONATE 25.2 MEQ/L (21.0-32.0); BLOOD UREA NITROGEN 11 MG/DL (7-18); CHLORIDE 109 MEQ/L (98-107); GLOMERULAR FILTRATION RATE 97 ML/MIN (>89); MAGNESIUM 1.7 MG/DL (1.5-2.5); POTASSIUM 3.6 MEQ/L (3.5-5.1); SODIUM (NA) 142 MEQ/L (136-145)
[2017-07-11] MEDS: NS + KCL 20 MEQ INJ 1,000 ML IV SCH (10:35)
[2017-07-11 10:44] LABS: ALKALINE PHOSPHATASE 61 U/L (45-117); FREE T4 1.32 NG/DL (0.76-1.46); TOTAL BILIRUBIN ADULT 0.6 MG/DL (0.2-1.0)
--- NOTE | 2017-07-11 12:34 | HHI.NSPN ---
(Deepika Okeefe) Note Status Status: Progress Note (Deepika Okeefe) Interval History Interval History Mr. Andrade is a 72 year old male who was previously seen in consultation at the request of Dr. Henri Mosley for neurosurgical evaluation of Normal Pressure Hydrocephalus. Mr. Andrade reports he began to develop progressive gait difficulties since 2009. His who accompanies him today describes his gait as broad based, shuffling, and his feet gets stuck to the floor. He has had recurrent falls. He has now in a motorized scooter for mobility. He underwent Physical Therapy without significant relief. Mr. Andrade also complains of loss of urine control. His reports no difficulties with his memory or thinking. He underwent an MRI of the Brain which showed ventriculomegaly suspicious for communicating hydrocephalus. He presents today for placement of lumbar drain. Dr. Henri Mosley also plans CSF testing for CIDP. 07/11: ambulated with PT, no significant improvement yet. denies headaches, chest pain, difficulty breathing. (Deepika Okeefe) Labs, Micro, & Vital Signs Results Date Time Temp Pulse Resp B/P (MAP) Pulse Ox O2 Delivery O2 Flow Rate FiO2 07/11/17 12:07 97.9 84 18 145/75 (98) 95 07/11/17 08:11 98.1 72 18 140/67 (91) 94 07/11/17 04:30 79 19 170/86 (114) 96 07/11/17 04:00 97.0 89 18 178/86 (116) 95 07/11/17 00:00 98.0 86 19 197/93 (127) 96 07/10/17 22:58 98.4 106 19 194/106 (135) 96 07/10/17 22:01 Room Air 07/10/17 21:45 83 186/98 (127) 07/10/17 20:30 98.3 87 18 197/95 (129) 95 07/10/17 17:34 97.4 84 20 167/94 (118) 97 07/10/17 14:45 80 20 175/92 (119) 95 07/10/17 13:45 78 18 158/99 (118) 92 07/10/17 13:15 85 18 149/88 (108) 93 07/10/17 12:45 78 20 158/89 (112) 95 07/10/17 12:30 82 20 158/91 (113) 94 07/12/17 06:59 Output Total 20 ml Balance -20 ml Constitutional Vital Signs Date Time Temp Pulse Resp B/P (MAP) Pulse Ox O2 Delivery O2 Flow Rate FiO2 07/11/17 12:07 97.9 84 18 145/75 (98) 95 07/11/17 08:11 98.1 72 18 140/67 (91) 94 07/11/17 04:30 79 19 170/86 (114) 96 07/11/17 04:00 97.0 89 18 178/86 (116) 95 07/11/17 00:00 98.0 86 19 197/93 (127) 96 07/10/17 22:58 98.4 106 19 194/106 (135) 96 07/10/17 22:01 Room Air 07/10/17 21:45 83 186/98 (127) 07/10/17 20:30 98.3 87 18 197/95 (129) 95 07/10/17 17:34 97.4 84 20 167/94 (118) 97 07/10/17 14:45 80 20 175/92 (119) 95 07/10/17 13:45 78 18 158/99 (118) 92 07/10/17 13:15 85 18 149/88 (108) 93 07/10/17 12:45 78 20 158/89 (112) 95 07/10/17 12:30 82 20 158/91 (113) 94 07/12/17 06:59 Output Total 20 ml Balance -20 ml (Deepika Okeefe) Review of Systems Constitutional: DENIES: Fever, Chills Respiratory: DENIES: Hemoptysis, Shortness of breath Cardiovascular: DENIES: Chest pain Neurologic: COMPLAINS OF: Abnormal gait, Poor Balance, DENIES: Headache (Deepika Okeefe) Physical Exam Mr. Andrade is alert, awake and oriented to time, place and person. Speech is appropriate. Lumbar drain intact. CSF is clear. Cranial nerve: pupils equal, round, and reactive to light. EOMs are intact. Facial motor and sensory function are normal and symmetrical. Neck is soft and supple. Muscle strength is 5/5 in all muscle groups of both upper extremities including deltoid, biceps, triceps and rn circulating. In the lower extremities, strength is 4/5 right iliopsoas, 5/5 left iliopsoas, bilateral quadriceps, hamstrings, plantar flexion, dorsiflexion. Sensory examination is intact to light touch in both the upper and lower extremities, symmetrically. Cerebellar examination is intact to [id number] test Gait examination: ambulated with rolling walker and side assist of PT's. Gait is shuffling, took very short steps. CARDIOVASCULAR: Regular rate and rhythm without murmurs, gallops, or rubs. RESPIRATORY: Clear to auscultation. Breath sounds equal bilaterally. No wheezes , rales, or rhonchi. GASTROINTESTINAL: Abdomen soft, non-tender, nondistended. MUSCULOSKELETAL: Extremities without clubbing, cyanosis, or edema. No calf tenderness. Negative Homans sign (Deepika Okeefe) Mr. Andrade is alert, awake and oriented to time, place and person. Speech is appropriate. Lumbar drain intact. CSF is clear. Cranial nerve: pupils equal, round, and reactive to light. EOMs are intact. Facial motor and sensory function are normal and symmetrical. Neck is soft and supple. Muscle strength is 5/5 in all muscle groups of both upper extremities including deltoid, biceps, triceps and rn circulating. In the lower extremities, strength is 4/5 right iliopsoas, 5/5 left iliopsoas, bilateral quadriceps, hamstrings, plantar flexion, dorsiflexion. Sensory examination is intact to light touch in both the upper and lower extremities, symmetrically. Cerebellar examination is intact to [id number] test Gait examination: ambulated with rolling walker and side assist of PT's. still festinating, took very short steps (Edgar Urbina MD) Medications Current Medications Current Medications Medications (Trade) Dose Ordered Sig/Matias Route PRN Reason Start Time Stop Time Status Last Admin Dose Admin Sodium Chloride 1,000 ml @ 30 mls/hr Q24H IV 07/10/17 10:00 Cefazolin Sodium/ Dextrose 50 ml @ 100 mls/hr WOUND/OSTOMY NURSE IV 07/10/17 10:00 07/13/17 09:59 Potassium Chloride/Sodium Chloride 1,000 ml @ 30 mls/hr Q24H IV 07/10/17 11:00 07/10/17 17:10 Bisacodyl (Dulcolax Supp) 10 mg DAILY PRN RECTAL CONSTIPATION 07/10/17 10:15 Docusate Sodium (Colace) 100 mg BID PO 07/10/17 21:00 07/11/17 08:41 Docusate Sodium (Colace Liq) 100 mg BID NG 07/10/17 21:00 07/10/17 21:37 Pantoprazole Sodium (Protonix) 40 mg DAILY PO 07/10/17 11:00 07/11/17 08:40 Pantoprazole Sodium (Protonix Inj) 40 mg DAILY PRN IV PUSH SEE LABEL COMMENTS 07/10/17 10:15 Ondansetron HCl (Zofran Inj) 4 mg Q8H PRN IV NAUSEA OR VOMITING 07/10/17 10:15 Acetaminophen/ Hydrocodone Bitart ([place] 10-325 Mg) 1 tab Q4H PRN PO PAIN SCALE 1 TO 5 07/10/17 10:15 Acetaminophen/ Hydrocodone Bitart ([place] 10-325 Mg) 2 tab Q4H PRN PO PAIN SCALE 6 TO 10 07/10/17 10:15 Acetaminophen (Tylenol) 650 mg Q4H PRN PO TEMPERATURE > 101.5 F 07/10/17 10:15 Acetaminophen (Tylenol 650 Mg/ 20 ml Liq) 650 mg Q4H PRN NG TEMPERATURE > 101.5 F 07/10/17 10:15 Acetaminophen (Tylenol Supp) 650 mg Q4H PRN RECTAL TEMPERATURE > 101.5 F 07/10/17 10:15 Albuterol Sulfate (Albuterol Neb) 2.5 mg Q4HR NEB PRN NEB WHEEZING 07/10/17 10:15 Sodium Chloride (NS Flush) 2 ml BID IV FLUSH 07/10/17 21:00 07/10/17 21:38 Sodium Chloride (NS Flush) 2 ml UNSCH PRN IV FLUSH FLUSH AFTER USING IV ACCESS 07/10/17 10:30 Bupropion HCl (Wellbutrin Sr) 150 mg BID PO 07/10/17 21:00 07/11/17 08:40 Tamsulosin HCl (Flomax) 0.4 mg DAILY PO 07/10/17 18:00 07/11/17 08:41 Morphine Sulfate (Morphine Inj) 2 mg Q2HR PRN IV PAIN SCALE 1 TO 6 07/10/17 12:48 Morphine Sulfate (Morphine Inj) 4 mg Q2HR PRN IV PAIN SCALE 7 TO 10 07/10/17 12:48 07/15/17 12:47 Dextrose (D50w (Vial) Inj) 50 ml UNSCH PRN IV HYPOGLYCEMIA-SEE COMMENTS 07/10/17 14:15 Glucagon (Glucagon Inj) 1 mg UNSCH PRN OTHER HYPOGLYCEMIA-SEE COMMENTS 07/10/17 14:15 Insulin Aspart (NovoLOG SUPPLEMENTAL SCALE) 1 ACHS SLIDING SCALE SQ 07/10/17 16:00 Verapamil HCl (Isoptin Sr) 240 mg DAILY PO 07/11/17 09:00 07/11/17 08:39 Losartan Potassium (Cozaar) 100 mg DAILY PO 07/11/17 09:00 07/11/17 08:41 Tolterodine Tartrate (Detrol La) 4 mg DAILY PO 07/11/17 09:00 07/11/17 08:41 Sitagliptin Phosphate (Januvia) 50 mg BID PO 07/10/17 21:00 07/11/17 08:41 Metformin HCl (Glucophage) 1,000 mg BID PO 07/10/17 21:00 07/11/17 08:39 Influenza Virus Vaccine (Flu (Quadrivalent) Vaccine Inj) 0.5 ml ONCE ONCE IM 07/12/17 10:00 07/12/17 10:01 (Deepika Okeefe) Current Medications Current Medications Sodium Chloride 1,000 ml @ 30 mls/hr Q24H IV ; Start 07/10/17 at 10:00 Cefazolin Sodium/ Dextrose 50 ml @ 100 mls/hr WOUND/OSTOMY NURSE IV ; Start 07/10/17 at 10 :00; Stop 07/13/17 at 09:59 Potassium Chloride/Sodium Chloride 1,000 ml @ 30 mls/hr Q24H IV Last administered on 07/12/17 10:49; Start 07/10/17 at 11:00 Bisacodyl (Dulcolax Supp) 10 mg DAILY PRN RECTAL CONSTIPATION; Start 07/10/17 at 10:15 Docusate Sodium (Colace) 100 mg BID PO Last administered on 07/12/17 08:30; Start 07/10/17 at 21:00 Docusate Sodium (Colace Liq) 100 mg BID NG Last administered on 07/10/17 21:37 ; Start 07/10/17 at 21:00 Pantoprazole Sodium (Protonix) 40 mg DAILY PO Last administered on 07/12/17 08: 29; Start 07/10/17 at 11:00 Pantoprazole Sodium (Protonix Inj) 40 mg DAILY PRN IV PUSH SEE LABEL COMMENTS; Start 07/10/17 at 10:15 Ondansetron HCl (Zofran Inj) 4 mg Q8H PRN IV NAUSEA OR VOMITING; Start 07/10/17 at 10:15 Acetaminophen/ Hydrocodone Bitart ([place] 10-325 Mg) 1 tab Q4H PRN PO PAIN SCALE 1 TO 5; Start 07/10/17 at 10:15 Acetaminophen/ Hydrocodone Bitart ([place] 10-325 Mg) 2 tab Q4H PRN PO PAIN SCALE 6 TO 10; Start 07/10/17 at 10:15 Morphine Sulfate (Morphine Inj) 2 mg Q30M PRN IV PAIN SCALE 1 TO 6; Start at 10:15; Stop 07/10/17 at 12:52; Status DC Morphine Sulfate (Morphine Inj) 4 mg Q1H PRN IV PAIN SCALE 7 TO 10; Start at 10:15; Stop 07/10/17 at 12:52; Status DC Acetaminophen (Tylenol) 650 mg Q4H PRN PO TEMPERATURE > 101.5 F; Start 07/10/17 at 10:15 Acetaminophen (Tylenol 650 Mg/ 20 ml Liq) 650 mg Q4H PRN NG TEMPERATURE > 101.5 F; Start 07/10/17 at 10:15 Acetaminophen (Tylenol Supp) 650 mg Q4H PRN RECTAL TEMPERATURE > 101.5 F; Start 07/10/17 at 10:15 Albuterol Sulfate (Albuterol Neb) 2.5 mg Q4HR NEB PRN NEB WHEEZING; Start at 10:15 Sodium Chloride (NS Flush) 2 ml BID IV FLUSH Last administered on 07/12/17 08: 30; Start 07/10/17 at 21:00 Sodium Chloride (NS Flush) 2 ml UNSCH PRN IV FLUSH FLUSH AFTER USING IV ACCESS ; Start 07/10/17 at 10:30 Fentanyl Citrate (fentaNYL INJ) 100 mcg STK-MED ONCE .ROUTE Last administered on 07/10/17 11:01; Start 07/10/17 at 11:01; Stop 07/10/17 at 11:02; Status DC Midazolam HCl (Versed Inj) 2 mg STK-MED ONCE .ROUTE Last administered on 11:01; Start 07/10/17 at 11:01; Stop 07/10/17 at 11:02; Status DC Bupropion HCl (Wellbutrin Sr) 150 mg BID PO Last administered on 07/12/17 08:29 ; Start 07/10/17 at 21:00 Verapamil HCl (Isoptin) 240 mg DAILY PO ; Start 07/11/17 at 09:00; Status UNV Non-Formulary Medication 6 mg DAILY PO ; Start 07/11/17 at 09:00; Stop 07/11/17 at 09:00; Status DC Tamsulosin HCl (Flomax) 0.4 mg DAILY PO Last administered on 07/12/17 08:29; Start 07/10/17 at 18:00 Non-Formulary Medication 1 tab BID PO ; Start 07/10/17 at 21:00; Status UNV Non-Formulary Medication 10 mg DAILY PO ; Start 07/11/17 at 09:00; Status UNV Non-Formulary Medication 80 mg DAILY PO ; Start 07/11/17 at 09:00; Status UNV Dextrose (D50w (Vial) Inj) 50 ml UNSCH PRN IV HYPOGLYCEMIA-SEE COMMENTS; Start 07/10/17 at 13:00; Stop 07/10/17 at 17:23; Status DC Glucagon (Glucagon Inj) 1 mg UNSCH PRN OTHER HYPOGLYCEMIA-SEE COMMENTS; Start 07/10/17 at 13:00; Stop 07/10/17 at 17:23; Status DC Insulin Aspart (NovoLOG SUPPLEMENTAL SCALE) 1 ACHS SLIDING SCALE SQ ; Start 07/10/17 at 16:00; Stop 07/10/17 at 17:23; Status DC Morphine Sulfate (Morphine Inj) 2 mg Q2HR PRN IV PAIN SCALE 1 TO 6; Start at 12:48 Morphine Sulfate (Morphine Inj) 4 mg Q2HR PRN IV PAIN SCALE 7 TO 10; Start 07/10 at 12:48; Stop 07/15/17 at 12:47 Dextrose (D50w (Vial) Inj) 50 ml UNSCH PRN IV HYPOGLYCEMIA-SEE COMMENTS; Start 07/10/17 at 14:15 Glucagon (Glucagon Inj) 1 mg UNSCH PRN OTHER HYPOGLYCEMIA-SEE COMMENTS; Start 07/10/17 at 14:15 Insulin Aspart (NovoLOG SUPPLEMENTAL SCALE) 1 ACHS SLIDING SCALE SQ Last administered on 07/11/17 21:11; Start 07/10/17 at 16:00 Verapamil HCl (Isoptin Sr) 240 mg DAILY PO Last administered on 07/12/17 08:30 ; Start 07/11/17 at 09:00 Losartan Potassium (Cozaar) 100 mg DAILY PO Last administered on 07/12/17 08:30 ; Start 07/11/17 at 09:00 Tolterodine Tartrate (Detrol La) 4 mg DAILY PO Last administered on 07/12/17 08 :30; Start 07/11/17 at 09:00 Sitagliptin Phosphate (Januvia) 50 mg BID PO Last administered on 07/11/17 08: 41; Start 07/10/17 at 21:00; Stop 07/11/17 at 15:17; Status DC Metformin HCl (Glucophage) 1,000 mg BID PO Last administered on 07/12/17 08:30 ; Start 07/10/17 at 21:00 Influenza Virus Vaccine (Flu (Quadrivalent) Vaccine Inj) 0.5 ml ONCE ONCE IM Last administered on 07/12/17 11:09; Start 07/12/17 at 10:00; Stop 07/12/17 at 10: 01; Status DC Losartan Potassium (Cozaar) 100 mg ONCE ONCE PO Last administered on 07/10/17 23:38; Start 07/10/17 at 23:30; Stop 07/10/17 at 23:31; Status DC Clonidine (Catapres) 0.1 mg ONCE ONCE PO Last administered on 07/11/17 02:48; Start 07/11/17 at 02:15; Stop 07/11/17 at 02:16; Status DC Sitagliptin Phosphate (Januvia) 50 mg BID PO Last administered on 07/12/17 08: 29; Start 07/11/17 at 21:00 Clonidine (Catapres) 0.1 mg Q4H PRN PO SBP>160, DBP>90 Last administered on 07/12t 15:35; Start 07/12/17 at 14:45 (Edgar Urbina MD) Medical Decision Making MDM Remarks 72 y/o male with suspected Normal Pressure Hydrocephalus, s/p placement of lumbar drain for CSF drainage no significant improvement to gait exam today (Deepika Okeefe) Plan Plan Remarks continue lumbar draining today, reassess gait tomorrow appreciate PT evaluations medicine following nonchemical dvt prophylaxis in view of lumbar drain (Deepika Okeefe) Attending Statement No significant improvement on his gait. Continue daily physical therapy. Continue CSF drainage. Will reassess. Will discuss with Dr. Mosley Continue neuro checks in a serial fashion. Pulmonary. Continue aggressive pulmonary toilette, nasotracheal suction, and breathing treatments with nebulizers. Daily PT and OT Nutrition. Tolerating Oral diet Renal. Continue to monitor closely urine output, BUN and creatinine Endocrine. Continue to Monitor serial Acu checks and SSI as needed in detail ID continue to monitor for signs of infection Continue Protonix for stress ulcer prophylaxis Continue Cristóbal hose and SCD's for DVT prophylaxis Further recommendations will be provided depending on the patient's clinical evaluation and follow up studies. The exam, history, and the medical decision-making described in the above note were completed with the assistance of the mid-level provider. I reviewed and agree with the findings presented. I attest that I had a [id number] encounter with the patient on the same day, and personally performed and documented my assessment and findings in the medical record. (Edgar Urbina MD) Deepika Okeefe Jul 11, 2017 12:34 Edgar Urbina MD Jul 12, 2017 17:09
--- NOTE | 2017-07-11 15:39 | HHI.PR ---
Subjective Remarks Mr. Andrade is a 72 year old male who was previously seen in consultation BY DR TINSLEY at the request of Dr. Henri Mosley for neurosurgical evaluation of Normal Pressure Hydrocephalus. Mr. Andrade reports he began to develop progressive gait difficulties since 2009. His who accompanies him today describes his gait as broad based, shuffling, and his feet gets stuck to the floor. He has had recurrent falls. He NOW USES a motorized scooter for mobility. He underwent Physical Therapy without significant relief. Mr. Andrade also complains of loss of urine control. His reports no difficulties with his memory or thinking. He underwent an MRI of the Brain which showed ventriculomegaly suspicious for communicating hydrocephalus. He presents today for placement of lumbar drain. Dr. Henri Mosley also plans CSF testing for CIDP. WE HAVE BEEN ASKED TO SEE REGARDING MEDICAL MANAGEMENT. [address] IN [address] WORKED WITH PT ASK OT TO EVAL TOO DW PT AND RN MONITOR LABS AND SUGARS Objective Vitals Vital Signs Date Time Temp Pulse Resp B/P (MAP) Pulse Ox O2 Delivery O2 Flow Rate FiO2 07/11/17 12:07 97.9 84 18 145/75 (98) 95 07/11/17 08:11 98.1 72 18 140/67 (91) 94 07/11/17 04:30 79 19 170/86 (114) 96 07/11/17 04:00 97.0 89 18 178/86 (116) 95 07/11/17 00:00 98.0 86 19 197/93 (127) 96 07/10/17 22:58 98.4 106 19 194/106 (135) 96 07/10/17 22:01 Room Air 07/10/17 21:45 83 186/98 (127) 07/10/17 20:30 98.3 87 18 197/95 (129) 95 07/10/17 17:34 97.4 84 20 167/94 (118) 97 I/O 07/10/17 07/10/17 07/10/17 07/11/17 07/11/17 07/11/17 06:59 14:59 22:59 06:59 14:59 22:59 Intake Total 1378 ml 760 ml 480 ml Output Total 910 ml 70 ml Balance 468 ml 760 ml 410 ml Intake Oral 1285 ml 500 ml 480 ml IV Total 93 ml 260 ml Output Urine Total 850 ml Drainage Total 60 ml 70 ml # Voids 1 5 # Bowel Movements 0 0 Result Diagram: 07/11/17 0845 07/11/17 0845 Other Results Laboratory Tests Test 07/10/17 08:30 07/10/17 13:50 07/11/17 08:45 White Blood Count 7.5 TH/MM3 9.6 TH/MM3 Red Blood Count 4.71 MIL/MM3 4.52 MIL/MM3 Hemoglobin 14.3 GM/DL 13.9 GM/DL Hematocrit 42.6 % 40.8 % Mean Corpuscular Volume 90.5 FL 90.2 FL Mean Corpuscular Hemoglobin 30.4 PG 30.7 PG Mean Corpuscular Hemoglobin Concent 33.6 % 34.0 % Red Cell Distribution Width 17.7 % 17.2 % Platelet Count 240 TH/MM3 240 TH/MM3 Mean Platelet Volume 8.2 FL 8.7 FL Neutrophils (%) (Auto) 69.6 % 71.3 % Lymphocytes (%) (Auto) 13.9 % 14.4 % Monocytes (%) (Auto) 11.0 % 10.4 % Eosinophils (%) (Auto) 4.3 % 3.3 % Basophils (%) (Auto) 1.2 % 0.6 % Neutrophils # (Auto) 5.2 TH/MM3 6.8 TH/MM3 Lymphocytes # (Auto) 1.0 TH/MM3 1.4 TH/MM3 Monocytes # (Auto) 0.8 TH/MM3 1.0 TH/MM3 Eosinophils # (Auto) 0.3 TH/MM3 0.3 TH/MM3 Basophils # (Auto) 0.1 TH/MM3 0.1 TH/MM3 CBC Comment DIFF FINAL DIFF FINAL Differential Comment Prothrombin Time 11.8 SEC Prothromb Time International Ratio 1.1 RATIO Activated Partial Thromboplast Time 27.8 SEC Blood Urea Nitrogen 15 MG/DL 11 MG/DL Creatinine 0.92 MG/DL 0.78 MG/DL Random Glucose 106 MG/DL 90 MG/DL Calcium Level 8.6 MG/DL 8.4 MG/DL Sodium Level 143 MEQ/L 142 MEQ/L Potassium Level 3.8 MEQ/L 3.6 MEQ/L Chloride Level 108 MEQ/L 109 MEQ/L Carbon Dioxide Level 28.1 MEQ/L 25.2 MEQ/L Anion Gap 7 MEQ/L 8 MEQ/L Estimat Glomerular Filtration Rate 80 ML/MIN 97 ML/MIN CSF Volume (Tube 1) 4.0 ML CSF Supernatant Color (tube 1) CLEAR CSF Gross Blood (Tube 1) 0 CSF Volume (Tube 2) 4.0 ML CSF Supernatant Color (tube 2) CLEAR CSF Gross Blood (Tube 2) 0 CSF Volume (Tube 3) 4.0 ML CSF Supernatant Color (tube 3) CLEAR CSF Gross Blood (Tube 3) 0 CSF Volume (Tube 4) 2.0 ML CSF Supernatant Color (tube 4) CLEAR CSF Gross Blood (Tube 4) 0 CSF WBC (Tube 4) 7 /MM3 CSF RBC (Tube 4) 0 /MM3 CSF Neutrophils 0 % CSF Lymphocytes 53 % CSF Monocytes 33 % CSF Differential Comment CSF Histiocytes 13 % CSF Glucose 60 MG/DL CSF Total Protein 49.9 MG/DL Total Protein 5.7 GM/DL Albumin 3.0 GM/DL Phosphorus Level 2.6 MG/DL Magnesium Level 1.7 MG/DL Alkaline Phosphatase 61 U/L Aspartate Amino Transf (AST/SGOT) 3 U/L Alanine Aminotransferase (ALT/SGPT) 11 U/L Total Bilirubin 0.6 MG/DL Free Thyroxine 1.32 NG/DL Thyroid Stimulating Hormone 3rd Gen 2.240 uIU/ML Imaging Last Impressions Lumbar Puncture Fluoroscopy 07/10/17 0000 Signed Impressions: Service Date/Time: Monday, July 10, 2017 11:21 - CONCLUSION: Uncomplicated lumbar drain placement as above. Dimitri Mcdermott MD Objective Remarks GENERAL: This is a well-nourished, well-developed patient, in no apparent distress. SKIN: No rashes, ecchymoses or lesions. Cool and dry. HEAD: Atraumatic. Normocephalic. No temporal or scalp tenderness. EYES: Pupils equal round and reactive. Extraocular motions intact. No scleral icterus. No injection or drainage. ENT: Nose without bleeding, purulent drainage or septal hematoma. Throat without erythema, tonsillar hypertrophy or exudate. Uvula midline. Airway patent. NECK: Trachea midline. No JVD or lymphadenopathy. Supple, nontender, no meningeal signs. CARDIOVASCULAR: Regular rate and rhythm without murmurs, gallops, or rubs. S1, S2 NO S3 OR S4 NO HEAVE OR THRILL RESPIRATORY: Clear to auscultation. Breath sounds equal bilaterally. No wheezes , rales, or rhonchi. GASTROINTESTINAL: Abdomen soft, non-tender, nondistended. No hepato-splenomegaly , or palpable masses. No guarding. MUSCULOSKELETAL: Extremities without clubbing, cyanosis, or edema. No joint tenderness, effusion, or edema noted. No calf tenderness. Negative Homans sign bilaterally. NEUROLOGICAL: Awake and alert. Cranial nerves II through XII intact. Motor and sensory grossly within normal limits. 4 out of 5 muscle strength in all muscle groups. Normal speech. INSIGHT AND JUDGEMENT ARE GOOD MOOD AND BEHAVIOR ARE APPROPRIATE Procedures SP LUMBAR DRAIN 9- Medications and IVs Current Medications Sodium Chloride 1,000 ml @ 30 mls/hr Q24H IV ; Start 07/10/17 at 10:00 Cefazolin Sodium/ Dextrose 50 ml @ 100 mls/hr SOCKET PULLER IV ; Start 07/10/17 at 10 :00; Stop 07/13/17 at 09:59 Potassium Chloride/Sodium Chloride 1,000 ml @ 30 mls/hr Q24H IV Last administered on 07/10/17 17:10; Start 07/10/17 at 11:00 Bisacodyl (Dulcolax Supp) 10 mg DAILY PRN RECTAL CONSTIPATION; Start 07/10/17 at 10:15 Docusate Sodium (Colace) 100 mg BID PO Last administered on 07/11/17 08:41; Start 07/10/17 at 21:00 Docusate Sodium (Colace Liq) 100 mg BID NG Last administered on 07/10/17 21:37 ; Start 07/10/17 at 21:00 Pantoprazole Sodium (Protonix) 40 mg DAILY PO Last administered on 07/11/17 08: 40; Start 07/10/17 at 11:00 Pantoprazole Sodium (Protonix Inj) 40 mg DAILY PRN IV PUSH SEE LABEL COMMENTS; Start 07/10/17 at 10:15 Ondansetron HCl (Zofran Inj) 4 mg Q8H PRN IV NAUSEA OR VOMITING; Start 07/10/17 at 10:15 Acetaminophen/ Hydrocodone Bitart ([place] 10-325 Mg) 1 tab Q4H PRN PO PAIN SCALE 1 TO 5; Start 07/10/17 at 10:15 Acetaminophen/ Hydrocodone Bitart ([place] 10-325 Mg) 2 tab Q4H PRN PO PAIN SCALE 6 TO 10; Start 07/10/17 at 10:15 Morphine Sulfate (Morphine Inj) 2 mg Q30M PRN IV PAIN SCALE 1 TO 6; Start at 10:15; Stop 07/10/17 at 12:52; Status DC Morphine Sulfate (Morphine Inj) 4 mg Q1H PRN IV PAIN SCALE 7 TO 10; Start at 10:15; Stop 07/10/17 at 12:52; Status DC Acetaminophen (Tylenol) 650 mg Q4H PRN PO TEMPERATURE > 101.5 F; Start 07/10/17 at 10:15 Acetaminophen (Tylenol 650 Mg/ 20 ml Liq) 650 mg Q4H PRN NG TEMPERATURE > 101.5 F; Start 07/10/17 at 10:15 Acetaminophen (Tylenol Supp) 650 mg Q4H PRN RECTAL TEMPERATURE > 101.5 F; Start 07/10/17 at 10:15 Albuterol Sulfate (Albuterol Neb) 2.5 mg Q4HR NEB PRN NEB WHEEZING; Start at 10:15 Sodium Chloride (NS Flush) 2 ml BID IV FLUSH Last administered on 07/10/17 21: 38; Start 07/10/17 at 21:00 Sodium Chloride (NS Flush) 2 ml UNSCH PRN IV FLUSH FLUSH AFTER USING IV ACCESS ; Start 07/10/17 at 10:30 Fentanyl Citrate (fentaNYL INJ) 100 mcg STK-MED ONCE .ROUTE Last administered on 07/10/17 11:01; Start 07/10/17 at 11:01; Stop 07/10/17 at 11:02; Status DC Midazolam HCl (Versed Inj) 2 mg STK-MED ONCE .ROUTE Last administered on 11:01; Start 07/10/17 at 11:01; Stop 07/10/17 at 11:02; Status DC Bupropion HCl (Wellbutrin Sr) 150 mg BID PO Last administered on 07/11/17 08:40 ; Start 07/10/17 at 21:00 Verapamil HCl (Isoptin) 240 mg DAILY PO ; Start 07/11/17 at 09:00; Status UNV Non-Formulary Medication 6 mg DAILY PO ; Start 07/11/17 at 09:00; Stop 07/11/17 at 09:00; Status DC Tamsulosin HCl (Flomax) 0.4 mg DAILY PO Last administered on 07/11/17 08:41; Start 07/10/17 at 18:00 Non-Formulary Medication 1 tab BID PO ; Start 07/10/17 at 21:00; Status UNV Non-Formulary Medication 10 mg DAILY PO ; Start 07/11/17 at 09:00; Status UNV Non-Formulary Medication 80 mg DAILY PO ; Start 07/11/17 at 09:00; Status UNV Dextrose (D50w (Vial) Inj) 50 ml UNSCH PRN IV HYPOGLYCEMIA-SEE COMMENTS; Start 07/10/17 at 13:00; Stop 07/10/17 at 17:23; Status DC Glucagon (Glucagon Inj) 1 mg UNSCH PRN OTHER HYPOGLYCEMIA-SEE COMMENTS; Start 07/10/17 at 13:00; Stop 07/10/17 at 17:23; Status DC Insulin Aspart (NovoLOG SUPPLEMENTAL SCALE) 1 ACHS SLIDING SCALE SQ ; Start 07/10/17 at 16:00; Stop 07/10/17 at 17:23; Status DC Morphine Sulfate (Morphine Inj) 2 mg Q2HR PRN IV PAIN SCALE 1 TO 6; Start at 12:48 Morphine Sulfate (Morphine Inj) 4 mg Q2HR PRN IV PAIN SCALE 7 TO 10; Start 07/10 at 12:48; Stop 07/15/17 at 12:47 Dextrose (D50w (Vial) Inj) 50 ml UNSCH PRN IV HYPOGLYCEMIA-SEE COMMENTS; Start 07/10/17 at 14:15 Glucagon (Glucagon Inj) 1 mg UNSCH PRN OTHER HYPOGLYCEMIA-SEE COMMENTS; Start 07/10/17 at 14:15 Insulin Aspart (NovoLOG SUPPLEMENTAL SCALE) 1 ACHS SLIDING SCALE SQ ; Start 07/10/17 at 16:00 Verapamil HCl (Isoptin Sr) 240 mg DAILY PO Last administered on 07/11/17 08:39 ; Start 07/11/17 at 09:00 Losartan Potassium (Cozaar) 100 mg DAILY PO Last administered on 07/11/17 08:41 ; Start 07/11/17 at 09:00 Tolterodine Tartrate (Detrol La) 4 mg DAILY PO Last administered on 07/11/17 08 :41; Start 07/11/17 at 09:00 Sitagliptin Phosphate (Januvia) 50 mg BID PO Last administered on 07/11/17 08: 41; Start 07/10/17 at 21:00; Stop 07/11/17 at 15:17; Status DC Metformin HCl (Glucophage) 1,000 mg BID PO Last administered on 07/11/17 08:39 ; Start 07/10/17 at 21:00 Influenza Virus Vaccine (Flu (Quadrivalent) Vaccine Inj) 0.5 ml ONCE ONCE IM ; Start 07/12/17 at 10:00; Stop 07/12/17 at 10:01 Losartan Potassium (Cozaar) 100 mg ONCE ONCE PO Last administered on 07/10/17 23:38; Start 07/10/17 at 23:30; Stop 07/10/17 at 23:31; Status DC Clonidine (Catapres) 0.1 mg ONCE ONCE PO Last administered on 07/11/17 02:48; Start 07/11/17 at 02:15; Stop 07/11/17 at 02:16; Status DC Sitagliptin Phosphate (Januvia) 50 mg BID PO ; Start 07/11/17 at 21:00 Urinary Catheter: No A/P Problem List: (1) Depression ICD Code: F32.9 - Major depressive disorder, single episode, unspecified (2) Anxiety ICD Code: F41.9 - Anxiety disorder, unspecified (3) Gait instability ICD Code: R26.81 - Unsteadiness on feet (4) Hypertension ICD Code: I10 - Essential (primary) hypertension (5) Diabetes ICD Code: E11.9 - Type 2 diabetes mellitus without complications Assessment and Plan Gait Instability is being worked up for normal pressure hydrocephalus by Dr. TINSLEY as well as Dr. Mosley Had lumbar drain placed to determine if this helps Has gait instability and frequent falls mainly uses a scooter now Hypertension resume home medications Diabetes continue on insulin sliding scale coverage and Accu-Cheks before meals and at bedtime Depression and anxiety continue on home medications Incontinence monitors see if this is an aspect of normal pressure hydrocephalus Does not appear demented or to have memory loss at this time Continue physical therapy and occupational therapy. Will monitor for any other issues that arise will get a.m. labs and follow him throughout the admission for any information please see chart Palmer Abad DO Jul 11, 2017 15:39
[2017-07-11 18:02] LABS: HEMOGLOBIN A1a 1.2 %; HEMOGLOBIN A1b 2.3 %; HEMOGLOBIN Ao 82.8 %; HEMOGLOBIN P3 3.9 %
[2017-07-12] VITALS (7 sets, daily range): BP systolic 150–195; BP diastolic 58–98; PULSE 84–91; RESP 20; TEMP 97.1–98.1; O2SAT 93–97
--- NOTE | 2017-07-12 06:07 | MB ---
cc: LAYTON MOSLEY DATE OF CONSULTATION 07/11/2017 REASON FOR CONSULTATION Evaluate for CIDP. HISTORY OF PRESENT ILLNESS Mr. Andrade is a 72-year-old man with a history of progressive gait difficulty with shuffling of his gait and urinary incontinence. He was admitted for the purpose of a lumbar drain to evaluate for NPH. His spinal fluid has since been sent off for evaluation. In the differential is also CIDP. NEUROLOGIC EXAMINATION VITAL SIGNS: Blood pressure is 134/70, pulse 89, respirations 18, temperature 98 degrees. Higher cortical functions are normal. Cranial nerves intact. On motor exam he has 5/5 strength of all groups in both upper and lower extremities. There is no drift. Reflexes are 1+, symmetric. There is no Babinski sign present. LABORATORY DATA The white count is 9600, hemoglobin 13.9, hematocrit 40.8%, platelet count 240,000. Sodium is 142, potassium 3.6, chloride 109, CO2 25.2, BUN is 11, creatinine 0.78, GFR is 97, glucose is 90, calcium 8.4. TSH 2.24. CSF Analysis: There are 7 WBCs, 53% lymphocytes, 33% monos, 13% histiocytes, 0 RBCs, glucose 60, protein 49.9. IMPRESSION Probable normal-pressure hydrocephalus. There is only a marginal elevation of the protein. This is not highly suggestive of CIDP. Layton Mosley MD [facility] /6:23 PM /5:58 AM
[2017-07-12] MEDS: INSULIN ASPART SUPPLEMENTAL SCALE SQ SCH ×3 (06:16→16:00)
[2017-07-12] MEDS: buPROPion HCL 150 MG SUSTAINED RELEASE TAB PO SCH (08:29)
[2017-07-12] MEDS: PANTOPRAZOLE SOD 40 MG DELAYED RELEASE TAB PO SCH (08:29)
[2017-07-12] MEDS: TAMSULOSIN HCL 0.4 MG CAP PO SCH (08:29)
[2017-07-12] MEDS: DOCUSATE SODIUM 100 MG CAP PO SCH (08:30)
[2017-07-12] MEDS: DOCUSATE SODIUM 100 MG/10 ML UDC NG SCH (08:30)
[2017-07-12] MEDS: TOLTERODINE TARTRATE 4 MG CAP LA PO SCH (08:30)
[2017-07-12] MEDS: metFORMIN HCL 500 MG TAB PO SCH (08:30)
[2017-07-12] MEDS: SODIUM CHLORIDE FLUSH BID IV FLUSH SCH (08:30)
[2017-07-12] MEDS: VERAPAMIL HCL 240 MG SUSTAINED RELEASE TAB PO SCH (08:30)
[2017-07-12] MEDS: LOSARTAN 50 MG TAB PO SCH (08:30)
[2017-07-12] MEDS: SODIUM CHLOR 0.45% 1000 ML IV SCH (08:31)
[2017-07-12] MEDS ORDERED: INFLUENZA VIRUS VACCINE (QUADRIVALENT) 0.5 ML SYR IM ONE (10:00)
[2017-07-12] MEDS: NS + KCL 20 MEQ INJ 1,000 ML IV SCH (10:49)
--- NOTE | 2017-07-12 14:41 | HHI.PR ---
Subjective Remarks Mr. Andrade is a 72 year old male who was previously seen in consultation BY DR TINSLEY at the request of Dr. Henri Mosley for neurosurgical evaluation of Normal Pressure Hydrocephalus. Mr. Andrade reports he began to develop progressive gait difficulties since 2009. His who accompanies him today describes his gait as broad based, shuffling, and his feet gets stuck to the floor. He has had recurrent falls. He NOW USES a motorized scooter for mobility. He underwent Physical Therapy without significant relief. Mr. Andrade also complains of loss of urine control. His reports no difficulties with his memory or thinking. He underwent an MRI of the Brain which showed ventriculomegaly suspicious for communicating hydrocephalus. He presents today for placement of lumbar drain. Dr. Henri Mosley also plans CSF testing for CIDP. WE HAVE BEEN ASKED TO SEE REGARDING MEDICAL MANAGEMENT. 9- HAS LUMBAR DRAIN IN PLACE WORKED WITH PT ASK OT TO EVAL TOO DW PT AND RN MONITOR LABS AND SUGARS - has not had a mobility change with the lumbar drain in place Appears like the patient will more likely be discharged to home later today after seen by Dr. Mosley Discussed with patient RN and family Objective Vitals Vital Signs Date Time Temp Pulse Resp B/P (MAP) Pulse Ox O2 Delivery O2 Flow Rate FiO2 07/12/17 12:00 97.1 84 20 171/87 (115) 95 07/12/17 08:00 98.0 85 20 195/98 (130) 96 07/12/17 05:37 168/78 (108) 07/12/17 04:00 98.1 90 20 178/98 (124) 95 07/12/17 01:33 166/58 (94) 07/12/17 00:00 98.1 91 20 172/82 (112) 97 07/11/17 20:00 98.1 95 20 154/79 (104) 95 07/11/17 16:25 98.2 89 18 134/70 (91) 96 I/O 07/11/17 07/11/17 07/11/17 07/12/17 07/12/17 07/12/17 07:00 15:00 23:00 07:00 15:00 23:00 Intake Total 760 ml 480 ml 360 ml Output Total 70 ml 50 ml Balance 760 ml 410 ml -50 ml 360 ml Intake Oral 500 ml 480 ml 360 ml IV Total 260 ml Drainage Total 70 ml 50 ml # Voids 5 3 # Bowel Movements 0 Result Diagram: 07/11/17 0845 07/11/17 0845 Other Results Laboratory Tests Test 07/10/17 08:30 07/10/17 13:50 07/11/17 08:45 White Blood Count 7.5 TH/MM3 9.6 TH/MM3 Red Blood Count 4.71 MIL/MM3 4.52 MIL/MM3 Hemoglobin 14.3 GM/DL 13.9 GM/DL Hematocrit 42.6 % 40.8 % Mean Corpuscular Volume 90.5 FL 90.2 FL Mean Corpuscular Hemoglobin 30.4 PG 30.7 PG Mean Corpuscular Hemoglobin Concent 33.6 % 34.0 % Red Cell Distribution Width 17.7 % 17.2 % Platelet Count 240 TH/MM3 240 TH/MM3 Mean Platelet Volume 8.2 FL 8.7 FL Neutrophils (%) (Auto) 69.6 % 71.3 % Lymphocytes (%) (Auto) 13.9 % 14.4 % Monocytes (%) (Auto) 11.0 % 10.4 % Eosinophils (%) (Auto) 4.3 % 3.3 % Basophils (%) (Auto) 1.2 % 0.6 % Neutrophils # (Auto) 5.2 TH/MM3 6.8 TH/MM3 Lymphocytes # (Auto) 1.0 TH/MM3 1.4 TH/MM3 Monocytes # (Auto) 0.8 TH/MM3 1.0 TH/MM3 Eosinophils # (Auto) 0.3 TH/MM3 0.3 TH/MM3 Basophils # (Auto) 0.1 TH/MM3 0.1 TH/MM3 CBC Comment DIFF FINAL DIFF FINAL Differential Comment Prothrombin Time 11.8 SEC Prothromb Time International Ratio 1.1 RATIO Activated Partial Thromboplast Time 27.8 SEC Blood Urea Nitrogen 15 MG/DL 11 MG/DL Creatinine 0.92 MG/DL 0.78 MG/DL Random Glucose 106 MG/DL 90 MG/DL Calcium Level 8.6 MG/DL 8.4 MG/DL Sodium Level 143 MEQ/L 142 MEQ/L Potassium Level 3.8 MEQ/L 3.6 MEQ/L Chloride Level 108 MEQ/L 109 MEQ/L Carbon Dioxide Level 28.1 MEQ/L 25.2 MEQ/L Anion Gap 7 MEQ/L 8 MEQ/L Estimat Glomerular Filtration Rate 80 ML/MIN 97 ML/MIN CSF Volume (Tube 1) 4.0 ML CSF Supernatant Color (tube 1) CLEAR CSF Gross Blood (Tube 1) 0 CSF Volume (Tube 2) 4.0 ML CSF Supernatant Color (tube 2) CLEAR CSF Gross Blood (Tube 2) 0 CSF Volume (Tube 3) 4.0 ML CSF Supernatant Color (tube 3) CLEAR CSF Gross Blood (Tube 3) 0 CSF Volume (Tube 4) 2.0 ML CSF Supernatant Color (tube 4) CLEAR CSF Gross Blood (Tube 4) 0 CSF WBC (Tube 4) 7 /MM3 CSF RBC (Tube 4) 0 /MM3 CSF Neutrophils 0 % CSF Lymphocytes 53 % CSF Monocytes 33 % CSF Differential Comment CSF Histiocytes 13 % CSF Glucose 60 MG/DL CSF Total Protein 49.9 MG/DL Total Protein 5.7 GM/DL Albumin 3.0 GM/DL Phosphorus Level 2.6 MG/DL Magnesium Level 1.7 MG/DL Alkaline Phosphatase 61 U/L Aspartate Amino Transf (AST/SGOT) 3 U/L Alanine Aminotransferase (ALT/SGPT) 11 U/L Total Bilirubin 0.6 MG/DL Hemoglobin A1c 7.1 % Free Thyroxine 1.32 NG/DL Thyroid Stimulating Hormone 3rd Gen 2.240 uIU/ML Imaging Last Impressions Lumbar Puncture Fluoroscopy 07/10/17 0000 Signed Impressions: Service Date/Time: Monday, July 10, 2017 11:21 - CONCLUSION: Uncomplicated lumbar drain placement as above. Dimitri Mcdermott MD Objective Remarks GENERAL: This is a well-nourished, well-developed patient, in no apparent distress. SKIN: No rashes, ecchymoses or lesions. Cool and dry. HEAD: Atraumatic. Normocephalic. No temporal or scalp tenderness. EYES: Pupils equal round and reactive. Extraocular motions intact. No scleral icterus. No injection or drainage. ENT: Nose without bleeding, purulent drainage or septal hematoma. Throat without erythema, tonsillar hypertrophy or exudate. Uvula midline. Airway patent. NECK: Trachea midline. No JVD or lymphadenopathy. Supple, nontender, no meningeal signs. CARDIOVASCULAR: Regular rate and rhythm without murmurs, gallops, or rubs. S1, S2 NO S3 OR S4 NO HEAVE OR THRILL RESPIRATORY: Clear to auscultation. Breath sounds equal bilaterally. No wheezes , rales, or rhonchi. GASTROINTESTINAL: Abdomen soft, non-tender, nondistended. No hepato-splenomegaly , or palpable masses. No guarding. MUSCULOSKELETAL: Extremities without clubbing, cyanosis, or edema. No joint tenderness, effusion, or edema noted. No calf tenderness. Negative Homans sign bilaterally. NEUROLOGICAL: Awake and alert. Cranial nerves II through XII intact. Motor and sensory grossly within normal limits. 4 out of 5 muscle strength in all muscle groups. Normal speech. INSIGHT AND JUDGEMENT ARE GOOD MOOD AND BEHAVIOR ARE APPROPRIATE Procedures SP LUMBAR DRAIN 9-5 Medications and IVs Current Medications Sodium Chloride 1,000 ml @ 30 mls/hr Q24H IV ; Start 07/10/17 at 10:00 Cefazolin Sodium/ Dextrose 50 ml @ 100 mls/hr CREDIT REPORT CHECKER IV ; Start 07/10/17 at 10 :00; Stop 07/13/17 at 09:59 Potassium Chloride/Sodium Chloride 1,000 ml @ 30 mls/hr Q24H IV Last administered on 07/12/17 10:49; Start 07/10/17 at 11:00 Bisacodyl (Dulcolax Supp) 10 mg DAILY PRN RECTAL CONSTIPATION; Start 07/10/17 at 10:15 Docusate Sodium (Colace) 100 mg BID PO Last administered on 07/12/17 08:30; Start 07/10/17 at 21:00 Docusate Sodium (Colace Liq) 100 mg BID NG Last administered on 07/10/17 21:37 ; Start 07/10/17 at 21:00 Pantoprazole Sodium (Protonix) 40 mg DAILY PO Last administered on 07/12/17 08: 29; Start 07/10/17 at 11:00 Pantoprazole Sodium (Protonix Inj) 40 mg DAILY PRN IV PUSH SEE LABEL COMMENTS; Start 07/10/17 at 10:15 Ondansetron HCl (Zofran Inj) 4 mg Q8H PRN IV NAUSEA OR VOMITING; Start 07/10/17 at 10:15 Acetaminophen/ Hydrocodone Bitart (Seney 10-325 Mg) 1 tab Q4H PRN PO PAIN SCALE 1 TO 5; Start 07/10/17 at 10:15 Acetaminophen/ Hydrocodone Bitart (Seney 10-325 Mg) 2 tab Q4H PRN PO PAIN SCALE 6 TO 10; Start 07/10/17 at 10:15 Morphine Sulfate (Morphine Inj) 2 mg Q30M PRN IV PAIN SCALE 1 TO 6; Start at 10:15; Stop 07/10/17 at 12:52; Status DC Morphine Sulfate (Morphine Inj) 4 mg Q1H PRN IV PAIN SCALE 7 TO 10; Start at 10:15; Stop 07/10/17 at 12:52; Status DC Acetaminophen (Tylenol) 650 mg Q4H PRN PO TEMPERATURE > 101.5 F; Start 07/10/17 at 10:15 Acetaminophen (Tylenol 650 Mg/ 20 ml Liq) 650 mg Q4H PRN NG TEMPERATURE > 101.5 F; Start 07/10/17 at 10:15 Acetaminophen (Tylenol Supp) 650 mg Q4H PRN RECTAL TEMPERATURE > 101.5 F; Start 07/10/17 at 10:15 Albuterol Sulfate (Albuterol Neb) 2.5 mg Q4HR NEB PRN NEB WHEEZING; Start at 10:15 Sodium Chloride (NS Flush) 2 ml BID IV FLUSH Last administered on 07/12/17 08: 30; Start 07/10/17 at 21:00 Sodium Chloride (NS Flush) 2 ml UNSCH PRN IV FLUSH FLUSH AFTER USING IV ACCESS ; Start 07/10/17 at 10:30 Fentanyl Citrate (fentaNYL INJ) 100 mcg STK-MED ONCE .ROUTE Last administered on 07/10/17 11:01; Start 07/10/17 at 11:01; Stop 07/10/17 at 11:02; Status DC Midazolam HCl (Versed Inj) 2 mg STK-MED ONCE .ROUTE Last administered on 11:01; Start 07/10/17 at 11:01; Stop 07/10/17 at 11:02; Status DC Bupropion HCl (Wellbutrin Sr) 150 mg BID PO Last administered on 07/12/17 08:29 ; Start 07/10/17 at 21:00 Verapamil HCl (Isoptin) 240 mg DAILY PO ; Start 07/11/17 at 09:00; Status UNV Non-Formulary Medication 6 mg DAILY PO ; Start 07/11/17 at 09:00; Stop 07/11/17 at 09:00; Status DC Tamsulosin HCl (Flomax) 0.4 mg DAILY PO Last administered on 07/12/17 08:29; Start 07/10/17 at 18:00 Non-Formulary Medication 1 tab BID PO ; Start 07/10/17 at 21:00; Status UNV Non-Formulary Medication 10 mg DAILY PO ; Start 07/11/17 at 09:00; Status UNV Non-Formulary Medication 80 mg DAILY PO ; Start 07/11/17 at 09:00; Status UNV Dextrose (D50w (Vial) Inj) 50 ml UNSCH PRN IV HYPOGLYCEMIA-SEE COMMENTS; Start 07/10/17 at 13:00; Stop 07/10/17 at 17:23; Status DC Glucagon (Glucagon Inj) 1 mg UNSCH PRN OTHER HYPOGLYCEMIA-SEE COMMENTS; Start 07/10/17 at 13:00; Stop 07/10/17 at 17:23; Status DC Insulin Aspart (NovoLOG SUPPLEMENTAL SCALE) 1 ACHS SLIDING SCALE SQ ; Start 07/10/17 at 16:00; Stop 07/10/17 at 17:23; Status DC Morphine Sulfate (Morphine Inj) 2 mg Q2HR PRN IV PAIN SCALE 1 TO 6; Start at 12:48 Morphine Sulfate (Morphine Inj) 4 mg Q2HR PRN IV PAIN SCALE 7 TO 10; Start 07/10 at 12:48; Stop 07/15/17 at 12:47 Dextrose (D50w (Vial) Inj) 50 ml UNSCH PRN IV HYPOGLYCEMIA-SEE COMMENTS; Start 07/10/17 at 14:15 Glucagon (Glucagon Inj) 1 mg UNSCH PRN OTHER HYPOGLYCEMIA-SEE COMMENTS; Start 07/10/17 at 14:15 Insulin Aspart (NovoLOG SUPPLEMENTAL SCALE) 1 ACHS SLIDING SCALE SQ Last administered on 07/11/17 21:11; Start 07/10/17 at 16:00 Verapamil HCl (Isoptin Sr) 240 mg DAILY PO Last administered on 07/12/17 08:30 ; Start 07/11/17 at 09:00 Losartan Potassium (Cozaar) 100 mg DAILY PO Last administered on 07/12/17 08:30 ; Start 07/11/17 at 09:00 Tolterodine Tartrate (Detrol La) 4 mg DAILY PO Last administered on 07/12/17 08 :30; Start 07/11/17 at 09:00 Sitagliptin Phosphate (Januvia) 50 mg BID PO Last administered on 07/11/17 08: 41; Start 07/10/17 at 21:00; Stop 07/11/17 at 15:17; Status DC Metformin HCl (Glucophage) 1,000 mg BID PO Last administered on 07/12/17 08:30 ; Start 07/10/17 at 21:00 Influenza Virus Vaccine (Flu (Quadrivalent) Vaccine Inj) 0.5 ml ONCE ONCE IM Last administered on 07/12/17 11:09; Start 07/12/17 at 10:00; Stop 07/12/17 at 10: 01; Status DC Losartan Potassium (Cozaar) 100 mg ONCE ONCE PO Last administered on 07/10/17 23:38; Start 07/10/17 at 23:30; Stop 07/10/17 at 23:31; Status DC Clonidine (Catapres) 0.1 mg ONCE ONCE PO Last administered on 07/11/17 02:48; Start 07/11/17 at 02:15; Stop 07/11/17 at 02:16; Status DC Sitagliptin Phosphate (Januvia) 50 mg BID PO Last administered on 07/12/17 08: 29; Start 07/11/17 at 21:00 Urinary Catheter: No Vascular Central Line Catheter: No A/P Problem List: (1) Depression ICD Code: F32.9 - Major depressive disorder, single episode, unspecified (2) Anxiety ICD Code: F41.9 - Anxiety disorder, unspecified (3) Gait instability ICD Code: R26.81 - Unsteadiness on feet (4) Hypertension ICD Code: I10 - Essential (primary) hypertension (5) Diabetes ICD Code: E11.9 - Type 2 diabetes mellitus without complications Assessment and Plan Gait Instability is being worked up for normal pressure hydrocephalus by Dr. TINSLEY as well as Dr. Mosley Had lumbar drain placed to determine if this helps Has gait instability and frequent falls mainly uses a scooter now Hypertension resume home medications Diabetes continue on insulin sliding scale coverage and Accu-Cheks before meals and at bedtime Depression and anxiety continue on home medications Incontinence monitors see if this is an aspect of normal pressure hydrocephalus Does not appear demented or to have memory loss at this time Continue physical therapy and occupational therapy. Will monitor for any other issues that arise will get a.m. labs and follow him throughout the admission for any information please see chart Palmer Abad DO Jul 12, 2017 14:40
[2017-07-12] MEDS ORDERED: cloNIDine HCL 0.1 MG TAB PO PRN (14:45)
--- NOTE | 2017-07-12 15:25 | HHI.PR ---
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 Please schedule f/u with me in office in 2 weeks Diagnosis/Plan: Subjective Subjective Comments No acute events reported He feels no improvement in his gait after lumbar drain. He continues with a shuffling type of gait Active Medications Current Medications Medications (Trade) Dose Ordered Sig/Matias Route Start Time Stop Time Status Last Admin Sodium Chloride 1,000 ml @ 30 mls/hr Q24H IV 07/10/17 10:00 Cefazolin Sodium/ Dextrose 50 ml @ 100 mls/hr BABY COUNSELOR IV 07/10/17 10:00 07/13/17 09:59 Potassium Chloride/Sodium Chloride 1,000 ml @ 30 mls/hr Q24H IV 07/10/17 11:00 07/12/17 10:49 (Dulcolax Supp) 10 mg DAILY PRN RECTAL 07/10/17 10:15 (Colace) 100 mg BID PO 07/10/17 21:00 07/12/17 08:30 (Colace Liq) 100 mg BID NG 07/10/17 21:00 07/10/17 21:37 (Protonix) 40 mg DAILY PO 07/10/17 11:00 07/12/17 08:29 (Protonix Inj) 40 mg DAILY PRN IV PUSH 07/10/17 10:15 (Zofran Inj) 4 mg Q8H PRN IV 07/10/17 10:15 (Media 10-325 Mg) 1 tab Q4H PRN PO 07/10/17 10:15 (Media 10-325 Mg) 2 tab Q4H PRN PO 07/10/17 10:15 (Tylenol) 650 mg Q4H PRN PO 07/10/17 10:15 (Tylenol 650 Mg/ 20 ml Liq) 650 mg Q4H PRN NG 07/10/17 10:15 (Tylenol Supp) 650 mg Q4H PRN RECTAL 07/10/17 10:15 (Albuterol Neb) 2.5 mg Q4HR NEB PRN NEB 07/10/17 10:15 (NS Flush) 2 ml BID IV FLUSH 07/10/17 21:00 07/12/17 08:30 (NS Flush) 2 ml UNSCH PRN IV FLUSH 07/10/17 10:30 (Wellbutrin Sr) 150 mg BID PO 07/10/17 21:00 07/12/17 08:29 (Flomax) 0.4 mg DAILY PO 07/10/17 18:00 07/12/17 08:29 (Morphine Inj) 2 mg Q2HR PRN IV 07/10/17 12:48 (Morphine Inj) 4 mg Q2HR PRN IV 07/10/17 12:48 07/15/17 12:47 (D50w (Vial) Inj) 50 ml UNSCH PRN IV 07/10/17 14:15 (Glucagon Inj) 1 mg UNSCH PRN OTHER 07/10/17 14:15 (NovoLOG SUPPLEMENTAL SCALE) 1 ACHS SLIDING SCALE SQ 07/10/17 16:00 07/11/17 21:11 (Isoptin Sr) 240 mg DAILY PO 07/11/17 09:00 07/12/17 08:30 (Cozaar) 100 mg DAILY PO 07/11/17 09:00 07/12/17 08:30 (Detrol La) 4 mg DAILY PO 07/11/17 09:00 07/12/17 08:30 (Glucophage) 1,000 mg BID PO 07/10/17 21:00 07/12/17 08:30 (Januvia) 50 mg BID PO 07/11/17 21:00 07/12/17 08:29 (Catapres) 0.1 mg Q4H PRN PO 07/12/17 14:45 Allergies Allergies Coded Allergies No Known Allergies (Unverified06/18/17) Exam I&O / VS Vital Signs Date Time Temp Pulse Resp B/P (MAP) Pulse Ox O2 Delivery O2 Flow Rate FiO2 07/12/17 12:00 97.1 84 20 171/87 (115) 95 07/12/17 08:00 98.0 85 20 195/98 (130) 96 07/12/17 05:37 168/78 (108) 07/12/17 04:00 98.1 90 20 178/98 (124) 95 07/12/17 01:33 166/58 (94) 07/12/17 00:00 98.1 91 20 172/82 (112) 97 07/11/17 20:00 98.1 95 20 154/79 (104) 95 07/11/17 16:25 98.2 89 18 134/70 (91) 96 Exam Comments alert CN intact motor 5/5 bue and ble Objective Micro and Labs Date/Time Source Procedure Growth Status 07/10/17 13:50 Cerebral Spinal Fluid Lumbar Puncture Fungal Smear - Final NO FUNGAL ELEMENTS SEEN. Resulted 07/10/17 13:50 Cerebral Spinal Fluid Lumbar Puncture Fungal Culture Pending Resulted Henri Mosley PhD MD Jul 12, 2017 15:25
--- NOTE | 2017-07-12 16:21 | HHI.NSPN ---
(Deepika Okeefe) Note Status Status: Progress Note (Deepika Okeefe) Interval History Interval History Mr. Andrade is a 72 year old male who was previously seen in consultation at the request of Dr. Henri Mosley for neurosurgical evaluation of Normal Pressure Hydrocephalus. Mr. Andrade reports he began to develop progressive gait difficulties since 2009. His who accompanies him today describes his gait as broad based, shuffling, and his feet gets stuck to the floor. He has had recurrent falls. He has now in a motorized scooter for mobility. He underwent Physical Therapy without significant relief. Mr. Andrade also complains of loss of urine control. His reports no difficulties with his memory or thinking. He underwent an MRI of the Brain which showed ventriculomegaly suspicious for communicating hydrocephalus. He presents today for placement of lumbar drain. Dr. Henri Mosley also plans CSF testing for CIDP. 07/11: ambulated with PT, no significant improvement yet. denies headaches, chest pain, difficulty breathing. 07/12: pt seen this am during rounds. gait exam today shows no significant improvement. pt reports leg pain is better today. (Deepika Okeefe) Labs, Micro, & Vital Signs Results Date Time Temp Pulse Resp B/P (MAP) Pulse Ox O2 Delivery O2 Flow Rate FiO2 07/12/17 12:00 97.1 84 20 171/87 (115) 95 07/12/17 08:00 98.0 85 20 195/98 (130) 96 07/12/17 05:37 168/78 (108) 07/12/17 04:00 98.1 90 20 178/98 (124) 95 07/12/17 01:33 166/58 (94) 07/12/17 00:00 98.1 91 20 172/82 (112) 97 07/11/17 20:00 98.1 95 20 154/79 (104) 95 07/11/17 16:25 98.2 89 18 134/70 (91) 96 07/13/17 07:00 Output Total 80 ml Balance -80 ml Constitutional Vital Signs Date Time Temp Pulse Resp B/P (MAP) Pulse Ox O2 Delivery O2 Flow Rate FiO2 07/12/17 12:00 97.1 84 20 171/87 (115) 95 07/12/17 08:00 98.0 85 20 195/98 (130) 96 07/12/17 05:37 168/78 (108) 07/12/17 04:00 98.1 90 20 178/98 (124) 95 07/12/17 01:33 166/58 (94) 07/12/17 00:00 98.1 91 20 172/82 (112) 97 07/11/17 20:00 98.1 95 20 154/79 (104) 95 07/11/17 16:25 98.2 89 18 134/70 (91) 96 07/13/17 07:00 Output Total 80 ml Balance -80 ml (Deepika Okeefe) Review of Systems Constitutional: DENIES: Fever Eyes: DENIES: Diplopia Ears, nose, mouth, throat: DENIES: Vertigo Cardiovascular: DENIES: Chest pain Neurologic: COMPLAINS OF: Abnormal gait, Poor Balance (Deepika Okeefe) Physical Exam Mr. Andrade is alert, awake and oriented to time, place and person. Speech is appropriate. Lumbar drain intact. CSF is clear. Cranial nerve: pupils equal, round, and reactive to light. EOMs are intact. Facial motor and sensory function are normal and symmetrical. Neck is soft and supple. Muscle strength is 5/5 in all muscle groups of both upper extremities including deltoid, biceps, triceps and patient accounts manager. In the lower extremities, strength is 4/5 right iliopsoas, 5/5 left iliopsoas, bilateral quadriceps, hamstrings, plantar flexion, dorsiflexion. Sensory examination is intact to light touch in both the upper and lower extremities, symmetrically. Cerebellar examination is intact to [id number] test Gait examination: ambulated with rolling walker and side assist of PT's. still festinating, took very short steps, maybe some less assistance with PT when walking today CARDIOVASCULAR: Regular rate and rhythm without murmurs, gallops, or rubs. RESPIRATORY: Clear to auscultation. Breath sounds equal bilaterally. No wheezes , rales, or rhonchi. GASTROINTESTINAL: Abdomen soft, non-tender, nondistended. MUSCULOSKELETAL: Extremities without clubbing, cyanosis, or edema. No calf tenderness. Negative Homans sign (Deepika Okeefe) Mr. Andrade is alert, awake and oriented to time, place and person. Speech is appropriate. Lumbar drain intact. CSF is clear. Cranial nerve: pupils equal, round, and reactive to light. EOMs are intact. Facial motor and sensory function are normal and symmetrical. Neck is soft and supple. Muscle strength is 5/5 in all muscle groups of both upper extremities including deltoid, biceps, triceps and patient accounts manager. In the lower extremities, strength is 4/5 right iliopsoas, 5/5 left iliopsoas, bilateral quadriceps, hamstrings, plantar flexion, dorsiflexion. Sensory examination is intact to light touch in both the upper and lower extremities, symmetrically. Cerebellar examination is intact to [id number] test Gait examination: ambulated with rolling walker and side assist of PT's. still festinating, took very short steps (Edgar Urbina MD) Medications Current Medications Current Medications Medications (Trade) Dose Ordered Sig/Matias Route PRN Reason Start Time Stop Time Status Last Admin Dose Admin Sodium Chloride 1,000 ml @ 30 mls/hr Q24H IV 07/10/17 10:00 Cefazolin Sodium/ Dextrose 50 ml @ 100 mls/hr FILTER ASSEMBLER IV 07/10/17 10:00 07/13/17 09:59 Potassium Chloride/Sodium Chloride 1,000 ml @ 30 mls/hr Q24H IV 07/10/17 11:00 07/12/17 10:49 Bisacodyl (Dulcolax Supp) 10 mg DAILY PRN RECTAL CONSTIPATION 07/10/17 10:15 Docusate Sodium (Colace) 100 mg BID PO 07/10/17 21:00 07/12/17 08:30 Docusate Sodium (Colace Liq) 100 mg BID NG 07/10/17 21:00 07/10/17 21:37 Pantoprazole Sodium (Protonix) 40 mg DAILY PO 07/10/17 11:00 07/12/17 08:29 Pantoprazole Sodium (Protonix Inj) 40 mg DAILY PRN IV PUSH SEE LABEL COMMENTS 07/10/17 10:15 Ondansetron HCl (Zofran Inj) 4 mg Q8H PRN IV NAUSEA OR VOMITING 07/10/17 10:15 Acetaminophen/ Hydrocodone Bitart (Montrose 10-325 Mg) 1 tab Q4H PRN PO PAIN SCALE 1 TO 5 07/10/17 10:15 Acetaminophen/ Hydrocodone Bitart (Montrose 10-325 Mg) 2 tab Q4H PRN PO PAIN SCALE 6 TO 10 07/10/17 10:15 Acetaminophen (Tylenol) 650 mg Q4H PRN PO TEMPERATURE > 101.5 F 07/10/17 10:15 Acetaminophen (Tylenol 650 Mg/ 20 ml Liq) 650 mg Q4H PRN NG TEMPERATURE > 101.5 F 07/10/17 10:15 Acetaminophen (Tylenol Supp) 650 mg Q4H PRN RECTAL TEMPERATURE > 101.5 F 07/10/17 10:15 Albuterol Sulfate (Albuterol Neb) 2.5 mg Q4HR NEB PRN NEB WHEEZING 07/10/17 10:15 Sodium Chloride (NS Flush) 2 ml BID IV FLUSH 07/10/17 21:00 07/12/17 08:30 Sodium Chloride (NS Flush) 2 ml UNSCH PRN IV FLUSH FLUSH AFTER USING IV ACCESS 07/10/17 10:30 Bupropion HCl (Wellbutrin Sr) 150 mg BID PO 07/10/17 21:00 07/12/17 08:29 Tamsulosin HCl (Flomax) 0.4 mg DAILY PO 07/10/17 18:00 07/12/17 08:29 Morphine Sulfate (Morphine Inj) 2 mg Q2HR PRN IV PAIN SCALE 1 TO 6 07/10/17 12:48 Morphine Sulfate (Morphine Inj) 4 mg Q2HR PRN IV PAIN SCALE 7 TO 10 07/10/17 12:48 07/15/17 12:47 Dextrose (D50w (Vial) Inj) 50 ml UNSCH PRN IV HYPOGLYCEMIA-SEE COMMENTS 07/10/17 14:15 Glucagon (Glucagon Inj) 1 mg UNSCH PRN OTHER HYPOGLYCEMIA-SEE COMMENTS 07/10/17 14:15 Insulin Aspart (NovoLOG SUPPLEMENTAL SCALE) 1 ACHS SLIDING SCALE SQ 07/10/17 16:00 07/11/17 21:11 Verapamil HCl (Isoptin Sr) 240 mg DAILY PO 07/11/17 09:00 07/12/17 08:30 Losartan Potassium (Cozaar) 100 mg DAILY PO 07/11/17 09:00 07/12/17 08:30 Tolterodine Tartrate (Detrol La) 4 mg DAILY PO 07/11/17 09:00 07/12/17 08:30 Metformin HCl (Glucophage) 1,000 mg BID PO 07/10/17 21:00 07/12/17 08:30 Sitagliptin Phosphate (Januvia) 50 mg BID PO 07/11/17 21:00 07/12/17 08:29 Clonidine (Catapres) 0.1 mg Q4H PRN PO SBP>160, DBP>90 07/12/17 14:45 07/12/17 15:35 (Deepika Okeefe) Medical Decision Making MDM Remarks 72 y/o male with suspected Normal Pressure Hydrocephalus, s/p placement of lumbar drain for CSF drainage gait assessment again no significant improvement today (Deepika Okeefe) Plan Plan Remarks Dr. Dimitri calles noted, doubt NPH, pt started on Sinemet 25/100 bid for possible Parkinson's dc lumbar drain, keep flat per protocol appreciate PT evaluations medicine following cont nonchemical dvt prophylaxis in view of lumbar drain clear to dc once cleared by Dr. Mosley, pt may restart ASA 81mg tomorrow (eDepika Okeefe) Attending Statement Caprini VTE Risk Assessment Caprini VTE Risk Assessment: Mod/High Risk (score >= 2) VTE Pharm Contraindication: Epidural catheter Caprini Risk Assessment Model Point Value = 1 Point Value = 2 Point Value = 3 Point Value = 5 Age 41-60 Minor surgery BMI > 25 kg/m2 Swollen legs Varicose veins or History of unexplained or recurrent spontaneous Oral contraceptives or hormone replacement Sepsis (< 1 month) Serious lung disease, including pneumonia (< 1 month) Abnormal pulmonary function Acute myocardial infarction Congestive heart failure (< 1 month) History of inflammatory bowel disease Medical patient at bed rest Age 61-74 Arthroscopic surgery Major open surgery (> 45 min) Laparoscopic surgery (> 45 min) Malignancy Confined to bed (> 72 hours) Immobilizing plaster cast Central venous access Age >= 75 History of VTE Family history of VTE Factor V Leiden Prothrombin [id number] Lupus anticoagulant Anticardiolipin antibodies Elevated serum homocysteine Heparin-induced thrombocytopenia Other congenital or acquired thrombophilia Stroke (< 1 month) Elective arthroplasty Hip, pelvis, or leg fracture Acute spinal cord injury (< 1 month) Prophylaxis Regimen Total Risk Factor Score Risk Level Prophylaxis Regimen 0-1 Low Early ambulation 2 Moderate Order ONE of the following: *Sequential Compression Device (SCD) *Heparin 5000 units SQ BID 3-4 Higher Order ONE of the following medications: *Heparin 5000 units SQ TID *Enoxaparin/Lovenox 40 mg SQ daily (WT < 150 kg, CrCl > 30 mL/min) *Enoxaparin/Lovenox 30 mg SQ daily (WT < 150 kg, CrCl > 10-29 mL/min) *Enoxaparin/Lovenox 30 mg SQ BID (WT < 150 kg, CrCl > 30 mL/min) AND/OR *Sequential Compression Device (SCD) 5 or more Highest Order ONE of the following medications: *Heparin 5000 units SQ TID (Preferred with Epidurals) *Enoxaparin/Lovenox 40 mg SQ daily (WT < 150 kg, CrCl > 30 mL/min) *Enoxaparin/Lovenox 30 mg SQ daily (WT < 150 kg, CrCl > 10-29 mL/min) *Enoxaparin/Lovenox 30 mg SQ BID (WT < 150 kg, CrCl > 30 mL/min) AND *Sequential Compression Device (SCD) Mr. Andrade did not improve with drainage of CSF. Discussed with dr Mosley. Possible Parkinson's disease. Started on Sinemet Will discontinue lumbar drain Consultation to Dr. Henri Mosley, for work up for possible CIDP. Pulmonary.. Continue aggressive pulmonary toilette, nasotracheal suction, and breathing treatments with nebulizers. Nutrition. NPO Renal. monitor closely urine output, BUN and creatinine Endocrine. Monitor serial Acu checks and SSI as needed in detail ID monitor for signs of infection Protonix for stress ulcer prophylaxis Cristóbal hose and SCD's for DVT prophylaxis The exam, history, and the medical decision-making described in the above note were completed with the assistance of the mid-level provider. I reviewed and agree with the findings presented. I attest that I had a [id number] encounter with the patient on the same day, and personally performed and documented my assessment and findings in the medical record. (Edgar Urbina MD) Deepika Okeefe Jul 12, 2017 16:21 Edgar Urbina MD Jul 12, 2017 17:06
--- NOTE | 2017-07-12 16:24 | HHI.DCPOC ---
Discharge Care Plan Diagnosis: (1) Gait instability Goals to Promote Your Health * To prevent worsening of your condition and complications * To maintain your health at the optimal level Directions to Meet Your Goals Take your medications as prescribed Follow your dietary instruction Follow activity as directed Keep your appointments as scheduled Take your immunizations and boosters as scheduled If your symptoms worsen call your PCP, if no PCP go to Urgent Care Center or Emergency Room Smoking is Dangerous to Your Health. Avoid second hand smoke Call the 24-hour hour crisis hotline for domestic abuse at Deepika Okeefe Jul 12, 2017 16:24
--- NOTE | 2017-07-12 16:24 | HHI.DS ---
Discharge Summary Admission Date Jul 10, 2017 at 09:58 Discharge Date: Jul 12, 2017 Admitting Diagnosis suspected NPH, s/p placement of (1) Depression ICD Code: F32.9 - Major depressive disorder, single episode, unspecified (2) Anxiety ICD Code: F41.9 - Anxiety disorder, unspecified (3) Gait instability ICD Code: R26.81 - Unsteadiness on feet (4) Hypertension ICD Code: I10 - Essential (primary) hypertension (5) Diabetes ICD Code: E11.9 - Type 2 diabetes mellitus without complications Brief History Mr. Andrade is a 72 year old male who was previously seen in consultation at the request of Dr. Henri Mosley for neurosurgical evaluation of Normal Pressure Hydrocephalus. Mr. Andrade reports he began to develop progressive gait difficulties since 2009. His who accompanies him today describes his gait as broad based, shuffling, and his feet gets stuck to the floor. He has had recurrent falls. He has now in a motorized scooter for mobility. He underwent Physical Therapy without significant relief. Mr. Andrade also complains of loss of urine control. His reports no difficulties with his memory or thinking. He underwent an MRI of the Brain which showed ventriculomegaly suspicious for communicating hydrocephalus. He presents today for placement of lumbar drain. Dr. Henri Mosley also plans CSF testing for CIDP. CBC/BMP: 07/11/17 0845 07/11/17 0845 Significant Findings Laboratory Tests Test 07/10/17 08:30 07/10/17 13:50 07/11/17 08:45 Red Cell Distribution Width 17.7 % (11.6-17.2) Monocytes (%) (Auto) 11.0 % (0.0-8.0) 10.4 % (0.0-8.0) Eosinophils (%) (Auto) 4.3 % (0.0-4.0) Prothrombin Time 11.8 SEC (9.8-11.6) Chloride Level 108 MEQ/L (98-107) 109 MEQ/L (98-107) Estimat Glomerular Filtration Rate 80 ML/MIN (>89) CSF Total Protein 49.9 MG/DL (15.0-45.0) Neutrophils (%) (Auto) 71.3 % (16.0-70.0) Monocytes # (Auto) 1.0 TH/MM3 (0-0.9) Total Protein 5.7 GM/DL (6.4-8.2) Albumin 3.0 GM/DL (3.4-5.0) Calcium Level 8.4 MG/DL (8.5-10.1) Aspartate Amino Transf (AST/SGOT) 3 U/L (15-37) Alanine Aminotransferase (ALT/SGPT) 11 U/L (12-78) Hemoglobin A1c 7.1 % (4.3-6.0) Imaging Last Impressions Lumbar Puncture Fluoroscopy 07/10/17 0000 Signed Impressions: Service Date/Time: Monday, July 10, 2017 11:21 - CONCLUSION: Uncomplicated lumbar drain placement as above. Dimitri Mcdermott MD Hospital Course Mr. Andrade underwent placement of lumbar drain for suspected NPH. He underwent CSF drainage x 2 days without any significant improvement in gait. Dr. Mosley started patient on trial of Sinemet for possible Parkinson's. His lumbar drain removed and patient discharge home in stable conditions. Pt Condition on Discharge: Stable Discharge Disposition: Discharge Home Discharge Instructions DIET: Follow Instructions for: Heart Healthy Diet ACTIVITIES You can perform: Weight Bearing As Romeo Follow up Referrals: Neurology - 1 Week @ [facility] with Henri Mosley PhD MD PCP Follow-up - 1 Week New Medications: Carbidopa-Levodopa (Sinemet) 25-100 Mg Tab 1 TAB PO Q12HR for Parkinson Disease Mgmt for 30 Days, #60 TAB 1 Refill Continued Medications: Ascorbic Acid (Vitamin C) 250 Mg Tab 500 MG PO for Nutritional Supplement, TAB 0 Refills Aspirin (Aspir-81) 81 Mg Tabdr Bupropion HCl ER 12 HR (Bupropion HCl ER 12 HR) 150 Mg Tab 150 MG PO BID, #60 TAB Cholecalciferol (Vitamin D3) (D3-2000) 2,000 Unit Capsule Coenzyme Q10 (Ubidecarenone) (Co Q 10) 100 Mg Cap Cyanocobalamin (B12) 1,000 Mcg Tab 3000 Docusate Sodium (Stool Softener) 50 Mg Capsule Insulin Glargine Inj (Lantus Solostar Pen Inj) 300 Unit/3 Ml Pen 1 UNITS SQ for Blood Sugar Management, PEN 0 Refills Lutein (Lutein) 6 Mg Cap 6 MG PO DAILY for Nutritional Supplement, CAP 0 Refills Clifton-3 Fatty Acids (Fish Oil) 1,000 Mg Cap 1200 Silodosin (Rapaflo) 8 Mg Cap 8 MG PO DAILY for Manage Prostate Problems, #30 CAP 0 Refills Sitagliptin-Metformin (Janumet) 50-1,000 Mg Tab 1 TAB PO BID for Blood Sugar Management, #60 TAB 0 Refills Solifenacin (Vesicare) 10 Mg Tab 10 MG PO DAILY for Urinary Symptom Managemen, #30 TAB 0 Refills Telmisartan (Telmisartan) 80 Mg Tab 80 MG PO DAILY for Blood Pressure Management, #30 TAB 0 Refills Verapamil (Verapamil) 120 Mg Tab 240 MG PO DAILY, #60 TAB 0 Refills Vitamin E Mixed (Vitamin E) 200 Unit Tablet Deepika Okeefe Jul 12, 2017 16:24
[2017-07-12] MEDS ORDERED: SINE25TA PO (16:27)
--- NOTE | 2017-07-12 16:32 | HHI.DS ---
Discharge Summary Admission Date Jul 10, 2017 at 09:58 Discharge Date: Jul 12, 2017 Admitting Diagnosis (1) Depression ICD Code: F32.9 - Major depressive disorder, single episode, unspecified (2) Anxiety ICD Code: F41.9 - Anxiety disorder, unspecified (3) Gait instability ICD Code: R26.81 - Unsteadiness on feet (4) Hypertension ICD Code: I10 - Essential (primary) hypertension (5) Diabetes ICD Code: E11.9 - Type 2 diabetes mellitus without complications Brief History Mr. Andrade is a 72 year old male who was previously seen in consultation at the request of Dr. Henri Mosley for neurosurgical evaluation of Normal Pressure Hydrocephalus. Mr. Andrade reports he began to develop progressive gait difficulties since 2009. His who accompanies him today describes his gait as broad based, shuffling, and his feet gets stuck to the floor. He has had recurrent falls. He has now in a motorized scooter for mobility. He underwent Physical Therapy without significant relief. Mr. Andrade also complains of loss of urine control. His reports no difficulties with his memory or thinking. He underwent an MRI of the Brain which showed ventriculomegaly suspicious for communicating hydrocephalus. He presents today for placement of lumbar drain. Dr. Henri Mosley also plans CSF testing for CIDP. CBC/BMP: 07/11/17 0845 07/11/17 0845 Significant Findings Laboratory Tests Test 07/10/17 08:30 07/10/17 13:50 07/11/17 08:45 Red Cell Distribution Width 17.7 % (11.6-17.2) Monocytes (%) (Auto) 11.0 % (0.0-8.0) 10.4 % (0.0-8.0) Eosinophils (%) (Auto) 4.3 % (0.0-4.0) Prothrombin Time 11.8 SEC (9.8-11.6) Chloride Level 108 MEQ/L (98-107) 109 MEQ/L (98-107) Estimat Glomerular Filtration Rate 80 ML/MIN (>89) CSF Total Protein 49.9 MG/DL (15.0-45.0) Neutrophils (%) (Auto) 71.3 % (16.0-70.0) Monocytes # (Auto) 1.0 TH/MM3 (0-0.9) Total Protein 5.7 GM/DL (6.4-8.2) Albumin 3.0 GM/DL (3.4-5.0) Calcium Level 8.4 MG/DL (8.5-10.1) Aspartate Amino Transf (AST/SGOT) 3 U/L (15-37) Alanine Aminotransferase (ALT/SGPT) 11 U/L (12-78) Hemoglobin A1c 7.1 % (4.3-6.0) Discharge Disposition: Discharge Home Discharge Instructions DIET: Follow Instructions for: Heart Healthy Diet ADDITIONAL Activity Instructio: Avoid falls, use assistance when walking Deepika Okeefe Jul 12, 2017 16:32
[2017-07-13 14:49] LABS: CSF CRYPTOCOCCUS AG CONF ND (NOT DETECTD)
[2017-08-16] MEDS ORDERED: VITA2000 PO (09:41)
[2017-08-16] MEDS ORDERED: CO Q10CA PO (09:42)
[2017-08-16] MEDS ORDERED: VITA500T4 PO (09:43)
[2017-08-16] MEDS ORDERED: DOCU100C PO (09:44)
[2017-08-16] MEDS ORDERED: OMEGCAP PO (09:44)
[2017-08-16] MEDS ORDERED: JANU50TA8 PO (09:46)
[2017-08-16] MEDS ORDERED: VERA1TAB17 PO (09:47)
[2017-08-16] MEDS ORDERED: VITA200T10 PO (09:48)
[2017-08-16] MEDS ORDERED: BACT800T5 PO (13:02)
== END 2017-07-12 19:30 | disposition home or self-care (01) | DRG 57 ==
LOC: HROP 09:11 → HRIP 09:15 → N05B 09:58 → HROP 16:31
PROVIDERS: ADMIT Neurological Surgery; ATTEND Neurological Surgery
PROC: 009U30Z Drainage of Spinal Canal with Drainage Device, Percutaneous Approach (ICD-10-PCS; principal; 2017-07-10)
DX: G91.2 (Idiopathic) normal pressure hydrocephalus (principal); E11.42 Type 2 diabetes mellitus with diabetic polyneuropathy; F41.9 Anxiety disorder, unspecified; F32.9 Major depressive disorder, single episode, unspecified; R26.81 Unsteadiness on feet; R32 Unspecified urinary incontinence; I10 Essential (primary) hypertension; R29.6 Repeated falls; Z79.82 Long term (current) use of aspirin; Z79.4 Long term (current) use of insulin; Z23 Encounter for immunization; Z91.81 History of falling
CPT/HCPCS: 63741; 76937; 77003; 80048; 80053; 82945; 82948; 83036; 83735; 84100; 84157; 84439; 84443; 85025; 85610; 85730; 86403; 87015; 87070; 87102; 87116; 87205; 87206; 89051; 90471; 90686; 94150; 99152; 99153; C1755; G0008; J1815; J2250; J3010; J3480; Q2038

== ENCOUNTER → 2017-08-16 | Outpatient (CLI) | payer MEDICARE, BC ==
[~2017-08-16] MED LIST changes: +BACT800T5 PO; +CO Q10CA PO; +DOCU100C PO; +HYDR-3533 PO; +OMEGCAP PO; +SINE25TA PO; +VERA1TAB17 PO; +VITA2000 PO; +VITA200T10 PO; +VITA500T4 PO
[2017-08-16 09:58] LABS: AUTOMATED NEUTROPHIL # 5.5 TH/MM3 (1.8-7.7); BASOPHIL # 0.1 TH/MM3 (0-0.2); BASOPHIL % 1.1 % (0.0-2.0); EOSINOPHIL # 0.3 TH/MM3 (0-0.4); EOSINOPHIL % 3.5 % (0.0-4.0); HEMATOCRIT 43.3 % (39.0-51.0); LYMPH % 15.2 % (9.0-44.0); LYMPHOCYTE # 1.2 TH/MM3 (1.0-4.8); MEAN CELL VOLUME 92.8 FL (80.0-100.0); MEAN CORPUSCULAR HEMOGLOBIN 31.8 PG (27.0-34.0); MEAN CORPUSCULAR HGB CONC 34.2 % (32.0-36.0); MONO % 11.9 % (0.0-8.0); NEUT % 68.3 % (16.0-70.0); PLATELET COUNT 250 TH/MM3 (150-450); RED BLOOD COUNT 4.66 MIL/MM3 (4.50-5.90); RED CELL DISTRIBUTION WIDTH 18.3 % (11.6-17.2)
[2017-08-16 10:03] LABS: HEMO FLAGS AUTO DIFF
[2017-08-16 10:05] LABS: APTT (PATIENT) 26.8 SEC (24.3-30.1); PROTHROMBIN TIME - PATIENT 10.6 SEC (9.8-11.6)
[2017-08-16 10:29] LABS: ALT (GPT) 11 U/L (12-78); ANION GAP 7 MEQ/L (5-15); AST (GOT) 5 U/L (15-37); BICARBONATE 26.6 MEQ/L (21.0-32.0); BLOOD UREA NITROGEN 12 MG/DL (7-18); CHLORIDE 108 MEQ/L (98-107); GLOMERULAR FILTRATION RATE 103 ML/MIN (>89); GLUCOSE,FASTING 62 MG/DL (74-99); POTASSIUM 3.6 MEQ/L (3.5-5.1); SODIUM (NA) 142 MEQ/L (136-145)
[2017-08-16 10:31] LABS: ALKALINE PHOSPHATASE 72 U/L (45-117); TOTAL BILIRUBIN ADULT 0.4 MG/DL (0.2-1.0)
[2017-08-16 10:41] LABS: BANDS 7 % (0-6); BASOPHILS 1 % (0-2); EOSINOPHILS 3 % (0-4); MYELOCYTES 1 % (0-0); NEUTROPHIL # MANUAL DIFF 5.6 TH/MM3 (1.8-7.7); POLYS (SEG NEUTROPHILS) 62 % (16-70); WBC DIFF SAMPLE 100
[2017-08-16 10:42] LABS: PLATELET ESTIMATE SMEAR NORMAL (NORMAL); PLATELET MORPHOLOGY NORMAL (NORMAL); SCAN/DIFF FINAL DIFF MANUAL
--- NOTE | 2017-08-16 11:07 | RADRPT ---
EXAM DATE/TIME: 08/16/2017 10:43 [facility] COMPARISON: No previous studies available for comparison. INDICATIONS : Evaluate for pneumonia, pneumothorax and communicable disease. Preop chest for placement of TREE PRUNER shunt on 08/21/17 MEDICAL HISTORY : None. SURGICAL HISTORY : None. ENCOUNTER: Initial ACUITY: 1 day PAIN SCORE: 0/10 LOCATION: Bilateral chest FINDINGS: PA and lateral views of the chest demonstrate the lungs to be symmetrically aerated without evidence of mass, infiltrate or effusion. The cardiomediastinal contours are unremarkable. Osseous structure s are intact. CONCLUSION: 1. No acute cardiopulmonary findings. Kartik Shaffer MD on August 16, 2017 at 11:05 Board Certified Radiologist. This report was verified electronically.
[2017-08-16 11:45] LABS: BACTERIA, URINE RARE /hpf; BLOOD, URINE NEG (NEG); COMMENT (UR) CULTURE INDICATED; CULTURE IF INDICATED CULTURE INDICATED; GLUCOSE,URINE NEG (NEG); KETONE, URINE NEG (NEG); NITRITE,URINE NEG (NEG); SQUAMOUS EPITHELIAL CELL URINE <1 /hpf (0-5); URINE COLOR YELLOW (YELLW/STRAW)
== END ==
LOC: CPRE 08:33
PROVIDERS: ATTEND Neurological Surgery
DX: Z01.812 Encounter for preprocedural laboratory examination (principal); Z01.811 Encounter for preprocedural respiratory examination; G91.2 (Idiopathic) normal pressure hydrocephalus; R82.99 Other abnormal findings in urine; Z01.818 Encounter for other preprocedural examination
CPT/HCPCS: 36415; 71020; 80053; 81001; 85007; 85027; 85610; 85730; 87086

== ENCOUNTER 2017-08-21 08:42 | Inpatient (IN) | payer MEDICARE, BC ==
[~2017-08-21] VITALS: Ht 182.9 cm; Wt 100.1 kg
[~2017-08-21 08:42] MED LIST changes: -CO Q100C9; -CYAN1TAB24; -DOCU50CA5; -FISH1000; -HYDR-3533 PO; -SINE25TA PO; -VERA120T3 PO; -VITA200T10; -[UNRECOGNIZED DRUG - CODE]
[2017-08-21] MEDS ORDERED: SODIUM CHLORID 0.9% 500 ML IV PRN (10:15)
[2017-08-21] MEDS ORDERED: CHLORHEXIDINE GLUCONATE 2 % 1 PACK (2 CLOTHS) TOPICAL PRN (10:15)
[2017-08-21] MEDS ORDERED: DO NOT ADM ANY ANTICOAGULANT DRUGS PRN ×2 (10:15→18:33)
[2017-08-21] MEDS ORDERED: INSULIN HUMAN REGULAR 1,000 UNITS/10 ML VIAL SQ PRN (10:15)
[2017-08-21] MEDS ORDERED: METOPROLOL TARTRATE 25 MG TAB PO PRN (10:15)
[2017-08-21] MEDS ORDERED: SODIUM CHLOR 0.9% 1000 ML INJ 1,000 ML IV SCH (10:15)
[2017-08-21] MEDS ORDERED: POVIDONE IODINE 5% (ANTISEPSIS KIT) 4 APPLICATIONS EACH NARE PRN (10:15)
[2017-08-21] MEDS ORDERED: LACTATED RINGER'S 1000 ML IV PRN (10:15)
[2017-08-21] MEDS ORDERED: VANCOMYCIN HCL 1000 MG ON-CALL/NS 250 ML IV SCH ×2 (10:15)
[2017-08-21 10:28] LABS: BLOOD, URINE NEG (NEG); GLUCOSE,URINE NEG (NEG); KETONE, URINE NEG (NEG); NITRITE,URINE NEG (NEG); PH, URINE 7.5 (5.0-8.5); URINE COLOR LIGHT-YELLOW (YELLW/STRAW)
[2017-08-21 10:34] LABS: COMMENT (UR) CULT NOT INDICATED; CULTURE IF INDICATED CULT NOT INDICATED
[2017-08-21] MEDS ORDERED: ceFAZolin INJ 1,000 MG VIAL IV ONE (12:00)
[2017-08-21] MEDS ORDERED: ONDANSETRON HCL 4 MG/2 ML VIAL IV PUSH ONE (12:00)
[2017-08-21] MEDS ORDERED: PROPOFOL 200 MG/20 ML AMP IV ONE (12:00)
[2017-08-21] MEDS ORDERED: ROCURONIUM INJ 50 MG/5 ML SYRINGE IV PUSH ONE (12:00)
[2017-08-21] MEDS ORDERED: NEOSTIGMINE 3 MG/3 ML SYR IV ONE (12:00)
[2017-08-21] MEDS ORDERED: GLYCOPYRROLATE 1 MG/5 ML SYRINGE IV PUSH ONE (12:00)
[2017-08-21] MEDS ORDERED: LABETALOL HCL 100 MG/20 ML VIAL IV ONE (12:00)
[2017-08-21] MEDS ORDERED: DEXAMETHASONE SOD PHOS 4 MG/ML VIAL IV ONE (12:00)
[2017-08-21] MEDS ORDERED: LIDOCAINE HCL 1% PF 5 ML AMPULE OTHER ONE (12:00)
[2017-08-21] MEDS ORDERED: MIDAZOLAM HCL 2 MG/2 ML VIAL IV ONE (12:00)
[2017-08-21] MEDS ORDERED: LACTATED RINGER'S 1000 ML INJ 2,000 ML IV ONE (12:00)
[2017-08-21] MEDS ORDERED: PHENYLEPH/NS 1000 MCG/10 ML SYR IV ONE (12:00)
[2017-08-21] MEDS ORDERED: THROMBIN (TOPICAL) 5,000 UNIT VIAL ONE (15:40)
[2017-08-21] MEDS ORDERED: BACITRACIN TOP OINT 15 GM TUBE ONE (15:40)
[2017-08-21] MEDS ORDERED: LIDOCAINE 2%/EPINEPHrine PF 1:200,000 20ML SDV ONE (15:40)
[2017-08-21] MEDS ORDERED: GELATIN 12 MM/7 MM FOAM ONE (15:40)
[2017-08-21] MEDS ORDERED: GENTAMICIN SULFATE 80 MG/2 ML VIAL ONE (15:41)
[2017-08-21] MEDS ORDERED: PILL SPLITTER OTHER PRN (17:30)
[2017-08-21] MEDS ORDERED: DEXTROSE 50% IN WATER 50 ML VIAL(D50) IV PUSH PRN (17:30)
[2017-08-21] MEDS ORDERED: ACETAMINOPHEN/HYDROcodone 325 MG/10 MG TAB PO PRN ×2 (17:30)
[2017-08-21] MEDS ORDERED: ceFAZolin INJ 1,000 MG VIAL ONE (17:30)
[2017-08-21] MEDS ORDERED: SODIUM CHLORIDE 0.9% FLUSH 5 ML FLUSH IVF PRN (17:30)
[2017-08-21] MEDS ORDERED: GLUCAGON 1 MG/ML VIAL OTHER PRN (17:30)
[2017-08-21] MEDS ORDERED: MORPHINE SULFATE 4 MG/ML INJ IV PUSH PRN ×2 (17:30)
[2017-08-21] MEDS ORDERED: ACETAMINOPHEN 325 MG TAB PO PRN (17:30)
[2017-08-21] MEDS: NS + KCL 20 MEQ INJ 1,000 ML IV SCH (18:40)
[2017-08-21] MEDS ORDERED: ENALAPRILAT 1.25 MG/ML VIAL IV PUSH PRN (19:00)
[2017-08-21] MEDS: SULFAMETHOXAZOLE-TRIMETHOPRIM DS 800-160 MG TAB PO SCH (20:27)
[2017-08-21] MEDS: DOCUSATE SODIUM 100 MG CAP PO SCH (20:28)
[2017-08-21] MEDS: SODIUM CHLORIDE 0.9% FLUSH 5 ML FLUSH IVF SCH (20:31)
[2017-08-21] MEDS: INSULIN ASPART SUPPLEMENTAL SCALE SQ SCH (20:38)
[2017-08-21] MEDS: metFORMIN HCL 500 MG TAB PO SCH (20:39)
[2017-08-21] MEDS ORDERED: NON-FORMULARY DRUG (Sitagliptin-Metformin (Janumet) 1 TAB) PO SCH (21:00)
[2017-08-21] MEDS ORDERED: VERAPAMIL HCL 240 MG SUSTAINED RELEASE TAB PO SCH (21:00)
[2017-08-21] MEDS ORDERED: INSULIN DETEMIR 100 UNITS/ML VIAL SQ SCH (21:00)
[2017-08-21 21:12] VITALS: BP 148/90; PULSE 73; RESP 18; TEMP 97.2; O2SAT 92
[2017-08-22] VITALS: BP 142/82; PULSE 77; RESP 18; TEMP 97.5; O2SAT 91
[2017-08-22] MEDS: ceFAZolin 2 GM PREMIX 50 ML IV SCH ×2 (00:26→08:27)
[2017-08-22 00:45] LABS: CSF NEUTROPHILS 0 %; GROSS BLOOD TUBE #1 0 (0); SUPERNATE COLOR TUBE #1 CLEAR (CLEAR); WBC TUBE #1 0 /MM3 (0-10)
[2017-08-22 00:46] LABS: CSF LYMPHOCYTES 0 %
[2017-08-22 04:00] VITALS: BP 141/77; PULSE 79; RESP 18; TEMP 98; O2SAT 93
[2017-08-22 05:11] VITALS: O2SAT 94
[2017-08-22] MEDS: NS + KCL 20 MEQ INJ 1,000 ML IV SCH ×2 (05:23→12:23)
[2017-08-22] MEDS: INSULIN ASPART SUPPLEMENTAL SCALE SQ SCH ×2 (08:00→12:00)
[2017-08-22] MEDS: metFORMIN HCL 500 MG TAB PO SCH (08:25)
[2017-08-22] MEDS: DOCUSATE SODIUM 100 MG CAP PO SCH (08:25)
[2017-08-22] MEDS: SULFAMETHOXAZOLE-TRIMETHOPRIM DS 800-160 MG TAB PO SCH (08:25)
[2017-08-22] MEDS: SODIUM CHLORIDE 0.9% FLUSH 5 ML FLUSH IVF SCH (08:27)
[2017-08-22 08:31] VITALS: BP 129/73; PULSE 82; RESP 20; TEMP 97.6; O2SAT 95
[2017-08-22] MEDS ORDERED: COENZYME Q10 10 MG PO SCH (09:00)
[2017-08-22] MEDS ORDERED: NON-FORMULARY DRUG (Lutein 6 MG) PO SCH (09:00)
[2017-08-22] MEDS ORDERED: buPROPion HCL 150 MG SUSTAINED RELEASE TAB PO SCH (09:00)
[2017-08-22] MEDS ORDERED: LOSARTAN 50 MG TAB PO SCH (09:00)
[2017-08-22] MEDS ORDERED: TAMSULOSIN HCL 0.4 MG CAP PO SCH (09:00)
[2017-08-22] MEDS ORDERED: CHOLECALCIFEROL (VIT D3) 1000 UNIT TAB PO SCH (09:00)
[2017-08-22] MEDS ORDERED: VITAMIN E 400 UNIT CAP PO SCH (09:00)
[2017-08-22] MEDS ORDERED: NON-FORMULARY DRUG (Fish Oil-Cholecalciferol (Omega-3 Fish Oil/Vitamin) 1 CAP) PO SCH (09:00)
[2017-08-22] MEDS ORDERED: PANTOPRAZOLE SODIUM 40 MG VIAL IVP SCH (09:00)
[2017-08-22] MEDS ORDERED: TOLTERODINE TARTRATE 4 MG CAP LA PO SCH (09:00)
[2017-08-22] MEDS ORDERED: CYANOCOBALAMIN 1,000 MCG TAB PO SCH (09:00)
--- NOTE | 2017-08-22 09:22 | RADRPT ---
EXAM DATE/TIME: 08/22/2017 07:39 [facility] COMPARISON: No previous studies available for comparison. INDICATIONS : Post op shunt placement. RADIATION DOSE: 34.82 CTDIvol (mGy) MEDICAL HISTORY : None SURGICAL HISTORY : GUIDE EXCURSION shunt ENCOUNTER: Initial ACUITY: 1 day PAIN SCALE: 0/10 LOCATION: cranial TECHNIQUE: Multiple contiguous axial images were obtained of the head. Using automated exposure control and adj ustment of the mA and/or kV according to patient size, radiation dose was kept as low as reasonably a chievable to obtain optimal diagnostic quality images. DICOM format image data is available electro nically for review and comparison. FINDINGS: CEREBRUM: Ventriculostomy entering from the right orbital floor for region of the lateral ventricle with tip ju st lateral to the third ventricle. There is no hemorrhage. POSTERIOR FOSSA: The cerebellum and brainstem are intact. The 4th ventricle is midline. The cerebellopontine angle i s unremarkable. EXTRACRANIAL: The visualized portion of the orbits is intact. SKULL: The calvaria is intact. No evidence of skull fracture. CONCLUSION: Shunt crossing right lateral ventricle with tip in extending across basalganglia. Palmer Shaffer MD FACR on August 22, 2017 at 9:19 Board Certified Radiologist. This report was verified electronically.
[2017-08-22] MEDS ORDERED: HYDR-3533 PO (09:33)
--- NOTE | 2017-08-22 11:42 | PD.OP ---
Operative Report Date of Surgery: Aug 21, 2017 Preoperative Diagnosis: Normal pressure hydrocephalus Postoperative Diagnosis: Normal pressure hydrocephalus Procedure: placement of ventriculoperitoneal shunt Anesthesia: general Surgeon: Edgar Urbina Log Loader Helper(s): Camilla Bautista Operation and Findings: INDICATIONS FOR PROCEDURE: Mr Andrade is a 72 year old male with history of normal pressure hydrocephalus who presented with progressive gait imbalance and short term memory loss. He had chronic communicating hydrocephalus and his condition was getting progressively worse. He underwent evaluation with placement of a lumbar drain and cerebrospinal fluid drainage with very significant improvement in her symptoms. A ventriculoperitoneal shunt was indicated The [id number] details of the procedure, its indications, alternatives, risks , and potential complications of the surgery were fully discussed with the patient and his family. They fully understood. All their questions were answered. No guarantees were given. They voiced requesting the surgery and signed informed consent.They were offered the alternative of continuing nonsurgical treatment. DETAILS OF THE SURGICAL PROCEDURE: After the induction of general anesthesia, endotracheal intubation was performed. A Navas catheter, bilateral BRITTNEY hose and sequential compression devices were placed and kept throughout the procedure. The patient was positioned supine on a 30-80 table with the head over a gel doughnut. All pressure points were carefully padded with eggcrate mattress. The right frontotemporal parietal area was shaved prepped and draped in the usual sterile fashion, as well as the neck, chest and abdomen. A small incision was made in the patient's right upper quadrant with a #10 blade and the dissection was carried out through the subcutaneous tissue and Naseem's fascia. The rectus sheath was carefully opened with Metzenbaum scissors and the rectus muscles were split along its fibers. The posterior rectus sheath was elevated and carefully opened. The peritoneum was elevated with mosquitoes and opened in the standard fashion. The peritoneal cavity was visualized and exposed. A pursestring suture was placed around the peritoneal opening. Using a tunneler a subcutaneous tunnel was created connecting the abdominal incision with the planned head incision. A small incision was made in the right frontal area and a self-retaining retractor was placed in the incision. An entry point for the catheter was selected 90 mm posterior to the supraorbital rim and 25 mm lateral to the midline. A Midas Jose was used to create the petra hole. The dura was coagulated with the bipolar in a cruciform fashion. A peritoneal catheter was placed in the subcutaneous tunnel previously created and a pocket was created underneath the galea for placement of the valve. A Probity programmable valve has calibrated at a pressure of 120 mmHg and flushed according to the fire code inspector's instructions. The valve was secured to the proximal end of the peritoneal catheter using a 2-0 silk. Then, a ventricular catheter was advanced into the ventricular system. A good flow of cerebrospinal fluid was obtained.~ The catheter was connected to the valve and the connection secured with a 2-0 silk. Cerebrospinal fluid was noted to drip through the distal end of the peritoneal catheter. The peritoneal catheter was placed in the peritoneal cavity under direct visualization. The pursestring suture was carefully adjusted with special care not to strangulate the catheter. The rectus sheath was closed using interrupted 2-0 Vicryl suture. The Naseem's fascia was approximated with 3-0 Vicryl, and the subcutaneous with 3-0 Vicryl. The skin was closed with running subcuticular 4-0 Vicryl in the abdomen. The skin incision was closed using interrupted 3-0 Vicryl for the galea and jenny to the skin. At the end of the procedure, the sponge, needle and instrument counts were all correct. The estimated blood was less than 50 cc. No blood transfusion was given. No intraoperative complications occurred. The patient received preoperative prophylactic antibiotics. The patient was then extubated and transferred to the recovery room in stable condition. Edgar Urbina MD Aug 22, 2017 11:42
--- NOTE | 2017-08-22 12:22 | HHI.DCPOC ---
Discharge Care Plan Diagnosis: (1) S/P ventriculoperitoneal shunt (2) Normal pressure hydrocephalus Goals to Promote Your Health * To prevent worsening of your condition and complications * To maintain your health at the optimal level Directions to Meet Your Goals Take your medications as prescribed Follow your dietary instruction Follow activity as directed Keep your appointments as scheduled Take your immunizations and boosters as scheduled If your symptoms worsen call your PCP, if no PCP go to Urgent Care Center or Emergency Room Smoking is Dangerous to Your Health. Avoid second hand smoke Call the 24-hour hour crisis hotline for domestic abuse at Deepika Okeefe Aug 22, 2017 12:22
--- NOTE | 2017-08-22 12:29 | HHI.DS ---
Discharge Summary Admission Date Aug 21, 2017 at 09:32 Discharge Date: Aug 22, 2017 Admitting Diagnosis s/p REINSURANCE ACCOUNTANT shunt (1) S/P ventriculoperitoneal shunt ICD Code: Z98.2 - Presence of cerebrospinal fluid drainage device (2) Normal pressure hydrocephalus ICD Code: G91.2 - (Idiopathic) normal pressure hydrocephalus (3) Gait instability ICD Code: R26.81 - Unsteadiness on feet Brief History Mr Andrade is a 72 year old male with history of normal pressure hydrocephalus who presented with progressive gait imbalance and short term memory loss. He had chronic communicating hydrocephalus and his condition was getting progressively worse. He underwent evaluation with placement of a lumbar drain and cerebrospinal fluid drainage with very significant improvement in her symptoms. A ventriculoperitoneal shunt was indicated Significant Findings Laboratory Tests Test 08/21/17 10:00 08/21/17 18:00 CSF RBC (Tube 1) 50 /MM3 (NONE) Imaging Last Impressions Head CT 08/22/17 0000 Signed Impressions: Service Date/Time: Tuesday, August 22, 2017 07:39 - CONCLUSION: Shunt crossing right lateral ventricle with tip in extending across basalganglia. Palmer Shaffer MD [facility] Hospital Course Mr. Andrade underwent a placement of ventriculoperitoneal shunt on Aug 21, 2017 for Normal pressure hydrocephalus. He is stable following surgery. Dr. Urbina has cleared the patient to be discharged home with home health care and PT. Activity restrictions, wound care, and signs and symptoms to watch for were fully discussed with the patient and his . Also discussed regarding importance on avoiding falls and using web assistant when transferring or ambulating. Pt Condition on Discharge: Stable Discharge Disposition: Disch w/ Home Health Serv Discharge Instructions DIET: Follow Instructions for: Heart Healthy Diet ACTIVITIES You can perform: Weight Bearing As Romeo ADDITIONAL Activity Instructio: Avoid strenuous activities, avoid fall or head trauma. Follow up Referrals: Neurosurgery - 10 Days with Deepika Okeefe New Orders: Physical Therapy New Medications: Hydrocodone-Acetaminophen (Lortab) 5-325 Mg Tab 1 TAB PO Q8HR PRN for PAIN, #62 TAB 0 Refills Continued Medications: Ascorbic Acid (Vitamin C) 250 Mg Tab 500 MG PO for Nutritional Supplement, TAB [address] (Aspir-81) 81 Mg Tabdr Bupropion HCl ER 12 HR (Bupropion HCl ER 12 HR) 150 Mg Tab 150 MG PO DAILY, #60 TAB Cholecalciferol (Vitamin D3) 2,000 Unit Cap 2000 UNITS PO DAILY for Nutritional Supplement, #1 BOTTLE 0 Refills Coenzyme Q10 (Ubidecarenone) (Co Q 10) 10 Mg Cap 10 MG PO DAILY Cyanocobalamin (Vitamin B-12) 500 Mcg Tab 500 MCG PO DAILY for Nutritional Supplement, #1 BOTTLE 0 Refills Docusate Sodium (Docusate Sodium) 100 Mg Cap 100 MG PO BID for Prevent Constipation, #60 CAP 0 Refills Fish Oil-Cholecalciferol ([place]-3 Fish Oil/Vitamin) 1,000-1,000 Mg Cap 1 CAP PO DAILY for Nutritional Supplement, CAP 0 Refills Insulin Glargine Inj (Lantus Solostar Pen Inj) 300 Unit/3 Ml Pen 38 UNITS SQ HS for Blood Sugar Management, PEN 0 Refills Lutein (Lutein) 6 Mg Cap 6 MG PO DAILY for Nutritional Supplement, CAP 0 Refills Silodosin (Rapaflo) 8 Mg Cap 8 MG PO DAILY for Manage Prostate Problems, #30 CAP 0 Refills Sitagliptin-Metformin (Janumet) 50-1,000 Mg Tab 1 TAB PO BID for Blood Sugar Management, #60 TAB 0 Refills Solifenacin (Vesicare) 10 Mg Tab 10 MG PO DAILY for Urinary Symptom Managemen, #30 TAB 0 Refills Sulfamethoxazole-Trimethoprim (Bactrim DS) 800-160 Mg Tab 1 TAB PO BID for Infection, #14 TAB 0 Refills Telmisartan (Telmisartan) 80 Mg Tab 80 MG PO DAILY for Blood Pressure Management, #30 TAB 0 Refills Verapamil ER 24 HR (Verapamil ER 24 HR) 240 Mg Tab 240 MG PO HS, #30 TAB 0 Refills Vitamin E Mixed (Vitamin E) 200 Unit Tablet 200 MG PO DAILY Deepika Okeefe Aug 22, 2017 12:29
--- NOTE | 2017-08-22 12:41 | HHI.FF ---
Face to Face Verification Diagnosis: (1) Normal pressure hydrocephalus (2) Gait instability (3) S/P ventriculoperitoneal shunt Physical Therapy Order: Improve ambulation Home Health Nursing Order: Medical education Medication education-adverse effect Wound care and dressing changes Nursing assessment with vital signs Instructions: [facility] I have seen patient Chung Andrade on 08/22/17. My clinical findings support the need for the requested home health care services because: Ltd mobility - disease progression Deconditioned w/ increased weakness Limited ability to care for self High risk of falls I certify that my clinical findings support that this patient is homebound because: Post-op weakness Unsteady gait/balance Unsafe to leave home unassisted Deepika Okeefe Aug 22, 2017 12:41
[2017-08-22 12:44] VITALS: BP 117/78; PULSE 86; RESP 20; TEMP 97.5; O2SAT 92
== END 2017-08-22 15:51 | disposition home health service (06) | DRG 33 ==
LOC: HSDI 09:32 → N05A 20:06
PROVIDERS: ADMIT Neurological Surgery; ATTEND Neurological Surgery
PROC: 00160J6 Bypass Cerebral Ventricle to Peritoneal Cavity with Synthetic Substitute, Open Approach (ICD-10-PCS; principal; 2017-08-21 16:21)
DX: G91.2 (Idiopathic) normal pressure hydrocephalus (principal); E11.9 Type 2 diabetes mellitus without complications; I10 Essential (primary) hypertension; Z79.4 Long term (current) use of insulin; Z79.84 Long term (current) use of oral hypoglycemic drugs; R26.89 Other abnormalities of gait and mobility; R41.3 Other amnesia; F32.9 Major depressive disorder, single episode, unspecified; Z87.891 Personal history of nicotine dependence
CPT/HCPCS: 70450; 81001; 82945; 82948; 84157; 87070; 87205; 89051; C9113; J0690; J1100; J1580; J1815; J2250; J2370; J2405; J2710; J3010; J3370; J3480; J7050; J7120